=== PATIENT | male | born 1950 | race African-American/Black ===

== ENCOUNTER 2018-05-31 00:42 | Inpatient (IN) | payer MEDICARE, MEDICAID ==
[~2018-05-31] VITALS: Ht 172.7 cm; Wt 78.0 kg
[2018-05-31] VITALS (10 sets, daily range): BP systolic 102–174; BP diastolic 64–109
[~2018-05-31 00:42] MED LIST: LAMO150T PO; LAMO200T PO; OLME40TA12 PO
[2018-05-31] MEDS ORDERED: METHYLPREDNISOLONE SOD SUCC 125 MG/2 ML VIAL IV STA (00:47)
[2018-05-31] MEDS ORDERED: ALBUTEROL (0.083%) 2.5MG/3ML NEB HHN STA (00:47)
[2018-05-31] MEDS ORDERED: IPRATROPIUM BROMIDE (0.02%) 0.5MG/2.5ML NEB HHN STA (00:47)
[2018-05-31] MEDS ORDERED: MAGNESIUM 2 G PREMIX 50 ML IV ONE (01:00)
[2018-05-31] MEDS ORDERED: ALBUTEROL (0.5%) 2.5MG/0.5ML NEB HHN ONE (01:00)
[2018-05-31 01:17] LABS: BASOPHILS % 0.5 % (0.0-2.0); EOSINOPHILS % 0.6 % (0.0-5.0); HEMATOCRIT. 45.3 % (42.0-52.0); HEMOGLOBIN. 15.1 g/dL (14.0-18.0); LYMPHOCYTES % 18.6 % (20.0-50.0); MEAN CORPUSCULAR HEMOGLOBIN 33.3 pg (28.0-32.0); MEAN CORPUSCULAR VOLUME 100.2 fL (80.0-94.0); MEAN PLATELET VOLUME 7.4 fl (7.4-10.4); NEUTROPHILS % 73.3 % (40.0-76.0); PLATELET 346 x1000/uL (130-400); RED BLOOD CELL COUNT 4.52 mill/uL (4.7-6.1); RED CELL DISTRIBUTION WIDTH 14.9 % (11.6-14.6)
[2018-05-31 01:28] LABS: BG BASE EXCESS -0.6 mmol/L (-2.0-2.0); BG CARBOXYHEMOGLOBIN 1.2 % (0.5-1.5); BG FRACTION INSPIRED OXYGEN 60; BG HCO3 ACT 27.7 mmol/L (22.0-26.0); BG METHEMOGLOBIN 0.3 % (0.0-1.5); BG OXYHEMOGLOBIN 96.5 % (94.0-97.0); BG PCO2 60.6 mmHg (35.0-45.0); BG PH 7.278 (7.350-7.450); BG PO2 120.5 mmHg (75.0-100.0); BG SAMPLE SITE RIGHT RADIAL; BG TOTAL HEMOGLOBIN 15.3 g/dL (12.0-18.0); BG VENT MODE MASK - BIPAP; BG VENT RATE 20 set
[2018-05-31 01:44] LABS: CHLORIDE 101 mEq/L (98-107)
[2018-05-31] MEDS ORDERED: LORAZEPAM 2MG/ML CPJ IV ONE (01:45)
[2018-05-31 03:10] LABS: BG BASE EXCESS -3.4 mmol/L (-2.0-2.0); BG CARBOXYHEMOGLOBIN 0.8 % (0.5-1.5); BG DEOXYHEMOGLOBIN 5.2 % (0.0-5.0); BG FRACTION INSPIRED OXYGEN 60; BG HCO3 ACT 23.9 mmol/L (22.0-26.0); BG METHEMOGLOBIN 0.2 % (0.0-1.5); BG OXYGEN SATURATION 94.7 % (92.0-98.5); BG OXYHEMOGLOBIN 93.8 % (94.0-97.0); BG PCO2 51.6 mmHg (35.0-45.0); BG PH 7.284 (7.350-7.450); BG PO2 82.6 mmHg (75.0-100.0); BG SAMPLE SITE RIGHT RADIAL; BG VENT MODE MASK - BIPAP
[2018-05-31] MEDS ORDERED: KETOROLAC 15MG/ML VIAL IV SCH (04:30)
[2018-05-31] MEDS: AZITHROMYCIN 500 MG in DEXT 5% WATER 250 ML IV SCH ×2 (05:15→06:54)
[2018-05-31 08:47] LABS: BG BASE EXCESS -8.6 mmol/L (-2.0-2.0); BG CARBOXYHEMOGLOBIN 1.2 % (0.5-1.5); BG DEOXYHEMOGLOBIN 3.9 % (0.0-5.0); BG FRACTION INSPIRED OXYGEN 30; BG HCO3 ACT 16.3 mmol/L (22.0-26.0); BG OXYGEN SATURATION 96.1 % (92.0-98.5); BG OXYHEMOGLOBIN 94.9 % (94.0-97.0); BG PCO2 32.4 mmHg (35.0-45.0); BG PO2 87.9 mmHg (75.0-100.0); BG SAMPLE SITE LEFT BRACHIAL; BG TOTAL HEMOGLOBIN 14.6 g/dL (12.0-18.0); BG VENT MODE NASAL CANNULA
[2018-05-31] MEDS ORDERED: ACETAMINOPHEN 325MG TABLET PO PRN (10:15)
[2018-05-31] MEDS ORDERED: CLONIDINE 0.1MG TABLET PO PRN (10:15)
[2018-05-31] MEDS ORDERED: ONDANSETRON HCL 4MG/2ML INJ IV PRN (10:15)
[2018-05-31] MEDS ORDERED: ACETAMINOPHEN 650MG/20.3ML UDC GT PRN (10:15)
[2018-05-31] MEDS ORDERED: HYDROCODONE/ACETAMINOPHEN 5/325MG TABLET PO PRN (10:15)
[2018-05-31] MEDS ORDERED: MAGNESIUM/ALUMINUM HYDROXIDE/SIMETHICONE 30ML UDC PO PRN (10:15)
[2018-05-31] MEDS ORDERED: DEXTROSE 50% WATER 50ML SYRINGE IV PRN (10:15)
[2018-05-31] MEDS ORDERED: DOCUSATE SODIUM 100MG CAPSULE PO PRN (10:15)
[2018-05-31] MEDS ORDERED: DIPHENHYDRAMINE 50MG/ML VIAL IV PRN (10:15)
[2018-05-31] MEDS ORDERED: ENOXAPARIN 40MG/0.4ML SYR SUBCUT SCH (10:15)
[2018-05-31] MEDS ORDERED: ACETAMINOPHEN 650MG SUPP PR PRN (10:15)
[2018-05-31] MEDS ORDERED: GUAIFENESIN 200MG/10ML SUGAR FREE UDC PO PRN (10:15)
[2018-05-31] MEDS ORDERED: NA PHOS,M-B/NA PHOS,DI-BA ENEMA 118ML PR PRN (10:15)
[2018-05-31] MEDS ORDERED: METHYLPREDNISOLONE SOD SUCC 40 MG/ML VIAL IV SCH (10:30)
[2018-05-31] MEDS: BLOOD SUGAR DIAGNOSTIC STRIP TEST SCH ×3 (11:58→21:00)
[2018-05-31] MEDS: ENOXAPARIN 30MG/0.3ML SYR SUBCUT SCH ×2 (11:58→22:02)
[2018-05-31] MEDS ORDERED: IPRATROPIUM/ALBUTEROL 0.5-3(2.5)MG/3ML NEB INH SCH (12:00)
[2018-05-31] MEDS ORDERED: HYDR-4005 MT (12:12)
[2018-05-31] MEDS ORDERED: INSULIN LISPRO 100 UNITS/ML SUBCUT NR (12:45)
[2018-05-31] MEDS: INSULIN LISPRO 100 UNITS/ML SUBCUT SCH ×3 (12:51→22:13)
[2018-05-31] MEDS ORDERED: LAM2 MT (15:05)
[2018-05-31] MEDS ORDERED: BUDESONIDE 0.5MG/2ML NEB HHN SCH (16:00)
[2018-05-31 16:48] LABS: BG BASE EXCESS -1.5 mmol/L (-2.0-2.0); BG BILEVEL POS AIRWAY PRESSURE 15/5; BG CARBOXYHEMOGLOBIN 0.6 % (0.5-1.5); BG FRACTION INSPIRED OXYGEN 40; BG HCO3 ACT 24.3 mmol/L (22.0-26.0); BG METHEMOGLOBIN 0.3 % (0.0-1.5); BG OXYHEMOGLOBIN 98.1 % (94.0-97.0); BG PCO2 44.7 mmHg (35.0-45.0); BG PH 7.353 (7.350-7.450); BG PO2 174.8 mmHg (75.0-100.0); BG SAMPLE SITE RIGHT BRACHIAL; BG TOTAL HEMOGLOBIN 14.9 g/dL (12.0-18.0); BG VENT MODE MASK - BIPAP
[2018-05-31] MEDS ORDERED: LAMOTRIGINE MT SCH (17:00)
[2018-05-31] MEDS: LAMOTRIGINE 100MG TABLET PO SCH (17:00)
[2018-05-31] MEDS: IPRATROPIUM/ALBUTEROL 0.5-3(2.5)MG/3ML NEB INH SCH ×3 (17:15→23:49)
[2018-05-31] MEDS ORDERED: TERBUTALINE SULFATE 1MG/ML VIAL SUBCUT NR (17:45)
[2018-05-31] MEDS ORDERED: METHYLPREDNISOLONE SOD SUCC 40 MG/ML VIAL IV NR (17:45)
[2018-05-31] MEDS: METHYLPREDNISOLONE SOD SUCC 40 MG/ML VIAL IV SCH ×2 (18:06→23:21)
[2018-05-31] MEDS: LORAZEPAM 2MG/ML CPJ IV PRN ×2 (18:07→21:31)
[2018-05-31] MEDS ORDERED: ETOMIDATE 2MG/ML 10ML VIAL IV ONE (19:30)
[2018-05-31] MEDS ORDERED: SUCCINYLCHOLINE CHLORIDE 200MG/10ML VIAL IV ONE (19:30)
[2018-05-31 20:10] LABS: *COCAINE SCREEN URINE PRESUMTIVE POSITIVE (NEGATIVE); METHADONE URINE SCREEN NEGATIVE (NEGATIVE)
[2018-05-31 20:11] LABS: *AMPHETAMINES SCREEN URINE NEGATIVE (NEGATIVE); *BARBITURATES SCREEN URINE NEGATIVE (NEGATIVE); *BENZODIAZEPINES SCREEN URINE NEGATIVE (NEGATIVE); CANNABINOID URINE SCREEN NEGATIVE (NEGATIVE); OPIATES URINE SCREEN NEGATIVE (NEGATIVE); PHENCYCLIDINE URINE SCREEN NEGATIVE (NEGATIVE)
[2018-05-31] MEDS: QUETIAPINE FUMARATE 25MG TABLET PO SCH (21:00)
[2018-05-31] MEDS: PROPOFOL 10MG/ML 100ML 100 ML IV PRN (21:17)
[2018-05-31] MEDS: FENTANYL CITRATE/PF 500 MCG in SODIUM CHLORIDE 0.9% 40 ML IV PRN (21:17)
[2018-05-31] MEDS: IPRATROPIUM/ALBUTEROL 0.5-3(2.5)MG/3ML NEB INH PRN (22:31)
[2018-05-31 22:39] LABS: BG BASE EXCESS -3.5 mmol/L (-2.0-2.0); BG CARBOXYHEMOGLOBIN 0.5 % (0.5-1.5); BG DEOXYHEMOGLOBIN 0.6 % (0.0-5.0); BG FRACTION INSPIRED OXYGEN 80; BG HCO3 ACT 26.6 mmol/L (22.0-26.0); BG METHEMOGLOBIN 0.3 % (0.0-1.5); BG OXYGEN SATURATION 99.4 % (92.0-98.5); BG OXYHEMOGLOBIN 98.6 % (94.0-97.0); BG PCO2 72.6 mmHg (35.0-45.0); BG PH 7.181 (7.350-7.450); BG PO2 351.3 mmHg (75.0-100.0); BG SAMPLE SITE RIGHT RADIAL; BG TIDAL VOLUME(mL) 500 mL; BG TOTAL HEMOGLOBIN 14.4 g/dL (12.0-18.0); BG VENT MODE VENT - A/C; BG VENT RATE 16 set
[2018-06-01] VITALS (58 sets, daily range): BP systolic 83–132; BP diastolic 44–92
[2018-06-01] MEDS: FENTANYL CITRATE/PF 500 MCG in SODIUM CHLORIDE 0.9% 40 ML IV PRN (00:12)
[2018-06-01] MEDS: MIDAZOLAM HCL 100 MG in DEXT 5% WATER 80 ML IV PRN ×2 (00:13→13:32)
[2018-06-01] MEDS: PROPOFOL 10MG/ML 100ML 100 ML IV PRN (00:14)
[2018-06-01] MEDS ORDERED: FENTANYL CITRATE/PF 1,000 MCG in SODIUM CHLORIDE 0.9% 80 ML IV PRN (02:00)
[2018-06-01] MEDS: IPRATROPIUM/ALBUTEROL 0.5-3(2.5)MG/3ML NEB INH SCH ×6 (04:05→23:58)
[2018-06-01 05:00] LABS: HEMATOCRIT. 40.9 % (42.0-52.0); HEMOGLOBIN. 13.6 g/dL (14.0-18.0); MEAN CORPUSCULAR HEMOGLOBIN 33.5 pg (28.0-32.0); MEAN CORPUSCULAR VOLUME 100.7 fL (80.0-94.0); MEAN PLATELET VOLUME 7.6 fl (7.4-10.4); PLATELET 334 x1000/uL (130-400); RED BLOOD CELL COUNT 4.06 mill/uL (4.7-6.1); RED CELL DISTRIBUTION WIDTH 14.7 % (11.6-14.6)
[2018-06-01 05:03] LABS: CHLORIDE 98 mEq/L (98-107)
[2018-06-01 05:11] LABS: HDL CHOLESTEROL 87 mg/dL (40-59); LDL CHOLESTEROL 164 mg/dL (5-100)
[2018-06-01] MEDS ORDERED: SODIUM CHLORIDE 0.9% 500 ML IV ONE ×2 (05:45→07:00)
[2018-06-01] MEDS ORDERED: DEXTROSE 50% WATER 50ML SYRINGE IV SCH (05:45)
[2018-06-01] MEDS ORDERED: INSULIN REGULAR (HUMULIN R) 300UNITS/3ML IV SCH (05:45)
[2018-06-01] MEDS ORDERED: NOREPINEPHRINE 8 MG in DEXT 5% WATER 242 ML IV PRN (06:00)
[2018-06-01] MEDS ORDERED: BLOOD SUGAR DIAGNOSTIC STRIP TEST SCH (06:00)
[2018-06-01] MEDS ORDERED: INSULIN LISPRO 100 UNITS/ML SUBCUT SCH (06:00)
[2018-06-01] MEDS ORDERED: CALCIUM GLUCONATE 100MG/ML 10ML VIAL IV SCH (06:00)
[2018-06-01] MEDS: METHYLPREDNISOLONE SOD SUCC 40 MG/ML VIAL IV SCH ×4 (06:23→23:19)
[2018-06-01] MEDS ORDERED: CALCIUM GLUCONATE 1000 MG in DEXTROSE 5% WATER 100 ML IV NR (06:30)
[2018-06-01] MEDS: DEXT 5%/0.45% NACL 1000ML 1,000 ML IV SCH ×3 (06:49→23:20)
[2018-06-01] MEDS ORDERED: SODIUM POLYSTYRENE SULFONATE 15 G/60 ML BOT NG NR (07:15)
[2018-06-01] MEDS ORDERED: DEXTROSE 50% WATER 50ML SYRINGE IV PRN ×2 (08:30)
[2018-06-01 08:49] LABS: BG BASE EXCESS -5.1 mmol/L (-2.0-2.0); BG CARBOXYHEMOGLOBIN 0.2 % (0.5-1.5); BG DEOXYHEMOGLOBIN 0.9 % (0.0-5.0); BG FRACTION INSPIRED OXYGEN 60; BG HCO3 ACT 22.4 mmol/L (22.0-26.0); BG METHEMOGLOBIN 0.3 % (0.0-1.5); BG OXYGEN SATURATION 99.1 % (92.0-98.5); BG OXYHEMOGLOBIN 98.6 % (94.0-97.0); BG PCO2 51.6 mmHg (35.0-45.0); BG PH 7.256 (7.350-7.450); BG PO2 199.4 mmHg (75.0-100.0); BG SAMPLE SITE RIGHT RADIAL; BG TIDAL VOLUME(mL) 500 mL; BG TOTAL HEMOGLOBIN 13.6 g/dL (12.0-18.0); BG VENT MODE VENT - A/C; BG VENT RATE 20 set
[2018-06-01] MEDS: ENOXAPARIN 30MG/0.3ML SYR SUBCUT SCH (08:56)
[2018-06-01] MEDS: BLOOD SUGAR DIAGNOSTIC STRIP TEST SCH ×15 (09:00→23:20)
[2018-06-01] MEDS ORDERED: INSULIN REGULAR (DRIP) 100 UNITS in SODIUM CHLORIDE 0.9% 99 ML IV PRN (09:00)
[2018-06-01] MEDS ORDERED: DIGOXIN 500MCG/2ML AMP IV NR (09:15)
[2018-06-01] MEDS: AZITHROMYCIN 500 MG in DEXT 5% WATER 250 ML IV SCH (10:15)
[2018-06-01] MEDS: FENTANYL CITRATE/PF 1,000 MCG in SODIUM CHLORIDE 0.9% 80 ML IV PRN (10:24)
[2018-06-01] MEDS: LAMOTRIGINE 100MG TABLET PO SCH ×2 (10:53→17:29)
[2018-06-01] MEDS ORDERED: AMINOPHYLLINE 1,000 MG in SODIUM CHLORIDE 0.9% 210 ML IV SCH (11:00)
[2018-06-01] MEDS ORDERED: PANTOPRAZOLE SODIUM 40 MG/VIAL IV NR (11:00)
[2018-06-01] MEDS: CEFTRIAXONE 2 G in DEXTROSE 5% WATER 50 ML IV SCH (11:16)
[2018-06-01] MEDS ORDERED: LIDOCAINE HCL 1% 10 MG/ML 10ML VIAL ONE (11:40)
[2018-06-01 14:28] LABS: PLATELET ESTIMATE NORMAL
[2018-06-01] MEDS: IPRATROPIUM/ALBUTEROL 0.5-3(2.5)MG/3ML NEB INH PRN (14:30)
[2018-06-01 15:29] LABS: BG BASE EXCESS -2.7 mmol/L (-2.0-2.0); BG CARBOXYHEMOGLOBIN 0.2 % (0.5-1.5); BG DEOXYHEMOGLOBIN 2.5 % (0.0-5.0); BG FRACTION INSPIRED OXYGEN 40; BG HCO3 ACT 22.1 mmol/L (22.0-26.0); BG METHEMOGLOBIN 0.3 % (0.0-1.5); BG OXYGEN SATURATION 97.5 % (92.0-98.5); BG PCO2 38.5 mmHg (35.0-45.0); BG PH 7.376 (7.350-7.450); BG PO2 97.4 mmHg (75.0-100.0); BG SAMPLE SITE RIGHT RADIAL; BG TOTAL HEMOGLOBIN 13.5 g/dL (12.0-18.0); BG VENT MODE VENT - PCV; BG VENT RATE 16 set
[2018-06-01] MEDS: QUETIAPINE FUMARATE 25MG TABLET PO SCH (21:00)
[2018-06-02] VITALS (74 sets, daily range): BP systolic 84–157; BP diastolic 48–109
[2018-06-02] MEDS ORDERED: DEXTROSE 50% WATER 50ML SYRINGE IV PRN ×2 (00:15→19:45)
[2018-06-02] MEDS ORDERED: BLOOD SUGAR DIAGNOSTIC STRIP TEST SCH (00:15)
[2018-06-02] MEDS ORDERED: FUROSEMIDE 40MG/4ML VIAL IVP SCH (00:37)
[2018-06-02] MEDS: FENTANYL CITRATE/PF 1,000 MCG in SODIUM CHLORIDE 0.9% 80 ML IV PRN ×3 (02:56→22:29)
[2018-06-02] MEDS: MIDAZOLAM HCL 100 MG in DEXT 5% WATER 80 ML IV PRN ×3 (02:56→22:28)
[2018-06-02] MEDS: IPRATROPIUM/ALBUTEROL 0.5-3(2.5)MG/3ML NEB INH SCH ×7 (04:15→23:55)
[2018-06-02] MEDS: METHYLPREDNISOLONE SOD SUCC 40 MG/ML VIAL IV SCH ×4 (05:35→22:25)
[2018-06-02] MEDS: DEXT 5%/0.45% NACL 1000ML 1,000 ML IV SCH ×2 (05:35→14:47)
[2018-06-02] MEDS: BLOOD SUGAR DIAGNOSTIC STRIP TEST SCH ×4 (05:39→22:00)
[2018-06-02] MEDS: INSULIN LISPRO 100 UNITS/ML SUBCUT SCH ×4 (06:10→22:00)
[2018-06-02] MEDS ORDERED: ENOXAPARIN 40MG/0.4ML SYR SUBCUT SCH (09:00)
[2018-06-02] MEDS: LAMOTRIGINE 100MG TABLET PO SCH ×2 (09:38→17:01)
[2018-06-02] MEDS: PANTOPRAZOLE SODIUM 40 MG/VIAL IV SCH (09:38)
[2018-06-02] MEDS: AZITHROMYCIN 500 MG in DEXT 5% WATER 250 ML IV SCH (09:39)
[2018-06-02 10:31] LABS: HEMOGLOBIN. 12.7 g/dL (14.0-18.0); MEAN CORPUSCULAR HEMOGLOBIN 33.6 pg (28.0-32.0); MEAN CORPUSCULAR VOLUME 100.2 fL (80.0-94.0); MEAN PLATELET VOLUME 7.5 fl (7.4-10.4); PLATELET 307 x1000/uL (130-400); RED BLOOD CELL COUNT 3.79 mill/uL (4.7-6.1); RED CELL DISTRIBUTION WIDTH 14.5 % (11.6-14.6)
[2018-06-02 10:35] LABS: CHLORIDE 96 mEq/L (98-107)
[2018-06-02 10:51] LABS: BG BASE EXCESS -1.3 mmol/L (-2.0-2.0); BG CARBOXYHEMOGLOBIN 0.6 % (0.5-1.5); BG DEOXYHEMOGLOBIN 3.8 % (0.0-5.0); BG FRACTION INSPIRED OXYGEN 40; BG HCO3 ACT 25.1 mmol/L (22.0-26.0); BG METHEMOGLOBIN 0.1 % (0.0-1.5); BG OXYGEN SATURATION 96.2 % (92.0-98.5); BG OXYHEMOGLOBIN 95.5 % (94.0-97.0); BG PCO2 48.5 mmHg (35.0-45.0); BG PH 7.331 (7.350-7.450); BG PO2 87.5 mmHg (75.0-100.0); BG SAMPLE SITE RIGHT RADIAL; BG TOTAL HEMOGLOBIN 13.4 g/dL (12.0-18.0); BG VENT MODE VENT - PCV; BG VENT RATE 16 set
[2018-06-02] MEDS: CEFTRIAXONE 2 G in DEXTROSE 5% WATER 50 ML IV SCH (11:34)
[2018-06-02 11:59] LABS: PLATELET ESTIMATE NORMAL
[2018-06-02] MEDS ORDERED: SODIUM CHLORIDE 0.45% 1,000 ML IV SCH (17:15)
[2018-06-02 17:29] LABS: CLARITY URINE CLOUDY (CLEAR); COLOR URINE YELLOW (YELLOW); KETONES URINE NEGATIVE (NEGATIVE); LEUKOCYTE ESTERASE URINE TRACE (NEGATIVE); NITRITE URINE NEGATIVE (NEGATIVE); OCCULT BLOOD URINE 3+ (NEGATIVE); PROTEIN URINE 1+ (NEGATIVE); SPECIFIC GRAVITY URINE 1.013 (1.005-1.030); UROBILINOGEN URINE 0.2 E.U./dL (0.2-1.0)
[2018-06-02] MEDS: SODIUM CHLORIDE 0.9% 1,000 ML IV SCH (19:07)
[2018-06-02 19:18] LABS: CHLORIDE 94 mEq/L (98-107)
[2018-06-02 19:25] LABS: PHOSPHORUS 3.9 mg/dL (2.5-4.9)
[2018-06-02 19:26] LABS: LDL CHOLESTEROL 135 mg/dL (5-100)
[2018-06-02 19:28] LABS: HDL CHOLESTEROL 94 mg/dL (40-59); T4 FREE 1.06 ng/dL (0.76-1.46)
[2018-06-02] MEDS: QUETIAPINE FUMARATE 25MG TABLET PO SCH (22:25)
[2018-06-03] VITALS (79 sets, daily range): BP systolic 90–154; BP diastolic 46–97
[2018-06-03] MEDS: IPRATROPIUM/ALBUTEROL 0.5-3(2.5)MG/3ML NEB INH SCH ×5 (03:56→21:07)
[2018-06-03] MEDS: BLOOD SUGAR DIAGNOSTIC STRIP TEST SCH ×6 (04:00→16:00)
[2018-06-03] MEDS: METHYLPREDNISOLONE SOD SUCC 40 MG/ML VIAL IV SCH ×3 (05:56→17:27)
[2018-06-03 06:23] LABS: CHLORIDE 97 mEq/L (98-107)
[2018-06-03 06:30] LABS: HEMATOCRIT. 34.4 % (42.0-52.0); HEMOGLOBIN. 11.5 g/dL (14.0-18.0); MEAN CORPUSCULAR HEMOGLOBIN 33.4 pg (28.0-32.0); MEAN CORPUSCULAR VOLUME 99.5 fL (80.0-94.0); MEAN PLATELET VOLUME 7.7 fl (7.4-10.4); PLATELET 288 x1000/uL (130-400); RED BLOOD CELL COUNT 3.45 mill/uL (4.7-6.1); RED CELL DISTRIBUTION WIDTH 14.5 % (11.6-14.6)
[2018-06-03] MEDS: FENTANYL CITRATE/PF 1,000 MCG in SODIUM CHLORIDE 0.9% 80 ML IV PRN ×2 (06:30→18:58)
[2018-06-03] MEDS: MIDAZOLAM HCL 100 MG in DEXT 5% WATER 80 ML IV PRN (06:31)
[2018-06-03 06:41] LABS: PHOSPHORUS 3.8 mg/dL (2.5-4.9)
[2018-06-03] MEDS: INSULIN LISPRO 100 UNITS/ML SUBCUT SCH ×6 (08:52→20:51)
[2018-06-03] MEDS: PANTOPRAZOLE SODIUM 40 MG/VIAL IV SCH (09:01)
[2018-06-03] MEDS: LAMOTRIGINE 100MG TABLET PO SCH ×2 (09:02→17:17)
[2018-06-03] MEDS: ENOXAPARIN 30MG/0.3ML SYR SUBCUT SCH (09:04)
[2018-06-03] MEDS: SODIUM CHLORIDE 0.9% 1,000 ML IV SCH ×2 (09:04→20:52)
[2018-06-03] MEDS: AZITHROMYCIN 500 MG in DEXT 5% WATER 250 ML IV SCH (09:32)
[2018-06-03] MEDS: CEFTRIAXONE 2 G in DEXTROSE 5% WATER 50 ML IV SCH (11:07)
[2018-06-03 13:08] LABS: BG BASE EXCESS 3.3 mmol/L (-2.0-2.0); BG CARBOXYHEMOGLOBIN 0.4 % (0.5-1.5); BG DEOXYHEMOGLOBIN 4.9 % (0.0-5.0); BG HCO3 ACT 29.8 mmol/L (22.0-26.0); BG METHEMOGLOBIN 0.2 % (0.0-1.5); BG OXYGEN SATURATION 95.1 % (92.0-98.5); BG OXYHEMOGLOBIN 94.5 % (94.0-97.0); BG PCO2 53.6 mmHg (35.0-45.0); BG PH 7.363 (7.350-7.450); BG PO2 81.2 mmHg (75.0-100.0); BG SAMPLE SITE RIGHT RADIAL; BG TIDAL VOLUME(mL) 500 mL; BG TOTAL HEMOGLOBIN 13.1 g/dL (12.0-18.0); BG VENT MODE VENT - A/C; BG VENT RATE 16 set
[2018-06-03 16:14] LABS: PLATELET ESTIMATE NORMAL
[2018-06-03] MEDS: QUETIAPINE FUMARATE 25MG TABLET PO SCH (20:52)
[2018-06-03] MEDS: IPRATROPIUM/ALBUTEROL 0.5-3(2.5)MG/3ML NEB INH PRN (21:07)
[2018-06-04] VITALS (85 sets, daily range): BP systolic 99–159; BP diastolic 58–107
[2018-06-04] MEDS: METHYLPREDNISOLONE SOD SUCC 40 MG/ML VIAL IV SCH ×3 (00:38→16:30)
[2018-06-04] MEDS: MIDAZOLAM HCL 100 MG in DEXT 5% WATER 80 ML IV PRN ×2 (00:40→10:36)
[2018-06-04] MEDS: FENTANYL CITRATE/PF 1,000 MCG in SODIUM CHLORIDE 0.9% 80 ML IV PRN ×3 (00:41→21:44)
[2018-06-04] MEDS: BLOOD SUGAR DIAGNOSTIC STRIP TEST SCH ×6 (00:42→20:00)
[2018-06-04] MEDS: INSULIN LISPRO 100 UNITS/ML SUBCUT SCH ×6 (00:49→21:42)
[2018-06-04] MEDS: IPRATROPIUM/ALBUTEROL 0.5-3(2.5)MG/3ML NEB INH SCH ×6 (00:57→21:06)
[2018-06-04 06:57] LABS: HEMATOCRIT. 35.2 % (42.0-52.0); HEMOGLOBIN. 11.9 g/dL (14.0-18.0); MEAN CORPUSCULAR VOLUME 100.7 fL (80.0-94.0); MEAN PLATELET VOLUME 7.8 fl (7.4-10.4); PLATELET 309 x1000/uL (130-400); RED CELL DISTRIBUTION WIDTH 14.7 % (11.6-14.6)
[2018-06-04 07:15] LABS: CHLORIDE 100 mEq/L (98-107)
[2018-06-04 07:23] LABS: PHOSPHORUS 2.8 mg/dL (2.5-4.9)
[2018-06-04] MEDS: ENOXAPARIN 30MG/0.3ML SYR SUBCUT SCH (09:22)
[2018-06-04] MEDS: LAMOTRIGINE 100MG TABLET PO SCH ×2 (09:22→16:29)
[2018-06-04] MEDS: PANTOPRAZOLE SODIUM 40 MG/VIAL IV SCH (09:22)
[2018-06-04] MEDS: AZITHROMYCIN 500 MG in DEXT 5% WATER 250 ML IV SCH (09:25)
[2018-06-04 10:34] LABS: PLATELET ESTIMATE NORMAL
[2018-06-04] MEDS ORDERED: METHYLPREDNISOLONE SOD SUCC 125 MG/2 ML VIAL IV NR (11:00)
[2018-06-04] MEDS: CEFTRIAXONE 2 G in DEXTROSE 5% WATER 50 ML IV SCH (11:23)
[2018-06-04] MEDS: SODIUM CHLORIDE 0.9% 1,000 ML IV SCH (11:24)
[2018-06-04 11:55] LABS: BG BASE EXCESS 2.4 mmol/L (-2.0-2.0); BG CARBOXYHEMOGLOBIN 0.4 % (0.5-1.5); BG DEOXYHEMOGLOBIN 4.1 % (0.0-5.0); BG FRACTION INSPIRED OXYGEN 40; BG HCO3 ACT 28.7 mmol/L (22.0-26.0); BG METHEMOGLOBIN 0.1 % (0.0-1.5); BG OXYGEN SATURATION 95.9 % (92.0-98.5); BG OXYHEMOGLOBIN 95.4 % (94.0-97.0); BG PCO2 51.8 mmHg (35.0-45.0); BG PH 7.361 (7.350-7.450); BG PO2 86.4 mmHg (75.0-100.0); BG SAMPLE SITE RIGHT RADIAL; BG TIDAL VOLUME(mL) 500 mL; BG TOTAL HEMOGLOBIN 12.2 g/dL (12.0-18.0); BG VENT MODE VENT - A/C; BG VENT RATE 16 set
[2018-06-04] MEDS: QUETIAPINE FUMARATE 25MG TABLET PO SCH (21:41)
[2018-06-05] VITALS (82 sets, daily range): BP systolic 105–174; BP diastolic 65–128
[2018-06-05] MEDS: SODIUM CHLORIDE 0.9% 1,000 ML IV SCH (00:20)
[2018-06-05] MEDS: IPRATROPIUM/ALBUTEROL 0.5-3(2.5)MG/3ML NEB INH SCH ×8 (00:35→21:34)
[2018-06-05] MEDS: METHYLPREDNISOLONE SOD SUCC 40 MG/ML VIAL IV SCH ×3 (02:02→17:26)
[2018-06-05] MEDS: INSULIN LISPRO 100 UNITS/ML SUBCUT SCH ×6 (02:03→20:40)
[2018-06-05] MEDS: MIDAZOLAM HCL 100 MG in DEXT 5% WATER 80 ML IV PRN ×2 (02:04→19:58)
[2018-06-05] MEDS: BLOOD SUGAR DIAGNOSTIC STRIP TEST SCH ×6 (04:00→20:41)
[2018-06-05 06:31] LABS: BASOPHILS % 0.2 % (0.0-2.0); HEMATOCRIT. 35.9 % (42.0-52.0); HEMOGLOBIN. 11.8 g/dL (14.0-18.0); LYMPHOCYTES % 7.3 % (20.0-50.0); MEAN CORPUSCULAR HEMOGLOBIN 33.4 pg (28.0-32.0); MEAN CORPUSCULAR VOLUME 101.2 fL (80.0-94.0); MEAN PLATELET VOLUME 7.6 fl (7.4-10.4); MONOCYTES % 11.3 % (2.0-8.0); NEUTROPHILS % 81.2 % (40.0-76.0); PLATELET 304 x1000/uL (130-400); RED BLOOD CELL COUNT 3.54 mill/uL (4.7-6.1); RED CELL DISTRIBUTION WIDTH 14.5 % (11.6-14.6)
[2018-06-05 06:45] LABS: CHLORIDE 103 mEq/L (98-107)
[2018-06-05 06:55] LABS: PHOSPHORUS 1.9 mg/dL (2.5-4.9)
[2018-06-05] MEDS: FENTANYL CITRATE/PF 1,000 MCG in SODIUM CHLORIDE 0.9% 80 ML IV PRN (08:13)
[2018-06-05] MEDS ORDERED: SODIUM POLYSTYRENE SULFONATE 15 G/60 ML BOT PO NR (10:00)
[2018-06-05] MEDS: PANTOPRAZOLE SODIUM 40 MG/VIAL IV SCH (10:31)
[2018-06-05] MEDS: LAMOTRIGINE 100MG TABLET PO SCH ×2 (10:31→17:26)
[2018-06-05] MEDS: AZITHROMYCIN 500 MG in DEXT 5% WATER 250 ML IV SCH (10:31)
[2018-06-05] MEDS: CEFTRIAXONE 2 G in DEXTROSE 5% WATER 50 ML IV SCH (10:32)
[2018-06-05] MEDS: ENOXAPARIN 40MG/0.4ML SYR SUBCUT SCH (10:45)
[2018-06-05] MEDS ORDERED: SODIUM PHOS,M-BASIC-D-BASIC 20 MM in DEXT 5% WATER 243.3333 ML IV SCH (15:00)
[2018-06-05] MEDS: QUETIAPINE FUMARATE 25MG TABLET PO SCH (20:41)
[2018-06-06] VITALS (84 sets, daily range): BP systolic 100–173; BP diastolic 51–99
[2018-06-06] MEDS: IPRATROPIUM/ALBUTEROL 0.5-3(2.5)MG/3ML NEB INH SCH ×6 (01:02→20:32)
[2018-06-06] MEDS: BLOOD SUGAR DIAGNOSTIC STRIP TEST SCH ×6 (01:18→20:46)
[2018-06-06] MEDS: METHYLPREDNISOLONE SOD SUCC 40 MG/ML VIAL IV SCH ×3 (01:29→17:20)
[2018-06-06] MEDS: INSULIN LISPRO 100 UNITS/ML SUBCUT SCH ×6 (01:30→20:50)
[2018-06-06] MEDS: MIDAZOLAM HCL 100 MG in DEXT 5% WATER 80 ML IV PRN ×2 (04:29→06:17)
[2018-06-06 05:53] LABS: BASOPHILS % 0.1 % (0.0-2.0); EOSINOPHILS % 0.1 % (0.0-5.0); HEMATOCRIT. 33.5 % (42.0-52.0); HEMOGLOBIN. 11.2 g/dL (14.0-18.0); LYMPHOCYTES % 10.2 % (20.0-50.0); MEAN CORPUSCULAR HEMOGLOBIN 33.4 pg (28.0-32.0); MEAN CORPUSCULAR VOLUME 100.2 fL (80.0-94.0); MEAN PLATELET VOLUME 7.6 fl (7.4-10.4); MONOCYTES % 11.7 % (2.0-8.0); NEUTROPHILS % 77.9 % (40.0-76.0); PLATELET 336 x1000/uL (130-400); RED BLOOD CELL COUNT 3.34 mill/uL (4.7-6.1); RED CELL DISTRIBUTION WIDTH 14.3 % (11.6-14.6)
[2018-06-06 06:35] LABS: CHLORIDE 98 mEq/L (98-107)
[2018-06-06 06:44] LABS: PHOSPHORUS 3.1 mg/dL (2.5-4.9)
[2018-06-06] MEDS: LAMOTRIGINE 100MG TABLET PO SCH ×2 (08:53→17:20)
[2018-06-06] MEDS: ENOXAPARIN 40MG/0.4ML SYR SUBCUT SCH (08:53)
[2018-06-06] MEDS: PANTOPRAZOLE SODIUM 40 MG/VIAL IV SCH (08:54)
[2018-06-06] MEDS ORDERED: SODIUM POLYSTYRENE SULFONATE 15 G/60 ML BOT NG NR (09:00)
[2018-06-06 09:10] LABS: BG BASE EXCESS 9.8 mmol/L (-2.0-2.0); BG DEOXYHEMOGLOBIN 1.6 % (0.0-5.0); BG FRACTION INSPIRED OXYGEN 60; BG HCO3 ACT 35.9 mmol/L (22.0-26.0); BG METHEMOGLOBIN 0.3 % (0.0-1.5); BG OXYGEN SATURATION 98.4 % (92.0-98.5); BG OXYHEMOGLOBIN 98.1 % (94.0-97.0); BG PCO2 55.8 mmHg (35.0-45.0); BG PH 7.426 (7.350-7.450); BG PO2 136.1 mmHg (75.0-100.0); BG SAMPLE SITE RIGHT RADIAL; BG TIDAL VOLUME(mL) 500 mL; BG VENT MODE VENT - A/C; BG VENT RATE 16 set
[2018-06-06] MEDS: AZITHROMYCIN 500 MG in DEXT 5% WATER 250 ML IV SCH (09:23)
[2018-06-06] MEDS: CEFTRIAXONE 2 G in DEXTROSE 5% WATER 50 ML IV SCH (10:36)
[2018-06-06] MEDS ORDERED: FENTANYL CITRATE/PF 500 MCG in SODIUM CHLORIDE 0.9% 40 ML IV PRN (18:45)
[2018-06-06] MEDS: FENTANYL CITRATE/PF 1,000 MCG in SODIUM CHLORIDE 0.9% 80 ML IV PRN (18:55)
[2018-06-06] MEDS: QUETIAPINE FUMARATE 25MG TABLET PO SCH (20:46)
[2018-06-07] VITALS (86 sets, daily range): BP systolic 105–169; BP diastolic 50–96
[2018-06-07] MEDS: IPRATROPIUM/ALBUTEROL 0.5-3(2.5)MG/3ML NEB INH SCH ×6 (00:46→21:13)
[2018-06-07] MEDS: METHYLPREDNISOLONE SOD SUCC 40 MG/ML VIAL IV SCH ×3 (01:25→16:55)
[2018-06-07] MEDS: INSULIN LISPRO 100 UNITS/ML SUBCUT SCH ×6 (01:27→21:14)
[2018-06-07 05:25] LABS: HEMATOCRIT. 35.3 % (42.0-52.0); HEMOGLOBIN. 11.6 g/dL (14.0-18.0); MEAN CORPUSCULAR HEMOGLOBIN 32.8 pg (28.0-32.0); MEAN CORPUSCULAR VOLUME 99.9 fL (80.0-94.0); MEAN PLATELET VOLUME 7.6 fl (7.4-10.4); PLATELET 356 x1000/uL (130-400); RED BLOOD CELL COUNT 3.53 mill/uL (4.7-6.1)
[2018-06-07] MEDS: BLOOD SUGAR DIAGNOSTIC STRIP TEST SCH ×6 (05:45→20:00)
[2018-06-07 05:56] LABS: CHLORIDE 95 mEq/L (98-107)
[2018-06-07] MEDS: PANTOPRAZOLE SODIUM 40 MG/VIAL IV SCH (08:50)
[2018-06-07] MEDS: LAMOTRIGINE 100MG TABLET PO SCH ×2 (08:51→16:57)
[2018-06-07] MEDS: ENOXAPARIN 40MG/0.4ML SYR SUBCUT SCH (08:51)
[2018-06-07 09:03] LABS: BG BASE EXCESS 13.3 mmol/L (-2.0-2.0); BG CARBOXYHEMOGLOBIN 0.7 % (0.5-1.5); BG DEOXYHEMOGLOBIN 3.6 % (0.0-5.0); BG FRACTION INSPIRED OXYGEN 40; BG METHEMOGLOBIN 0.3 % (0.0-1.5); BG OXYGEN SATURATION 96.4 % (92.0-98.5); BG OXYHEMOGLOBIN 95.4 % (94.0-97.0); BG PCO2 54.6 mmHg (35.0-45.0); BG PH 7.472 (7.350-7.450); BG PO2 83.3 mmHg (75.0-100.0); BG PRESSURE SUPPORT 12; BG SAMPLE SITE RIGHT RADIAL; BG TIDAL VOLUME(mL) 500 mL; BG TOTAL HEMOGLOBIN 12.5 g/dL (12.0-18.0); BG VENT MODE VENT - SIMV; BG VENT RATE 8 set
[2018-06-07] MEDS: AZITHROMYCIN 500 MG in DEXT 5% WATER 250 ML IV SCH (09:10)
[2018-06-07 09:24] LABS: PLATELET ESTIMATE NORMAL
[2018-06-07] MEDS: CEFTRIAXONE 2 G in DEXTROSE 5% WATER 50 ML IV SCH (11:28)
[2018-06-07] MEDS: MIDAZOLAM HCL 100 MG in DEXT 5% WATER 80 ML IV PRN (12:06)
[2018-06-07] MEDS: FENTANYL CITRATE/PF 1,000 MCG in SODIUM CHLORIDE 0.9% 80 ML IV PRN (21:16)
[2018-06-07] MEDS: QUETIAPINE FUMARATE 25MG TABLET PO SCH (21:17)
[2018-06-08] VITALS (90 sets, daily range): BP systolic 90–149; BP diastolic 47–95
[2018-06-08] MEDS: BLOOD SUGAR DIAGNOSTIC STRIP TEST SCH ×7 (00:22→23:40)
[2018-06-08] MEDS: INSULIN LISPRO 100 UNITS/ML SUBCUT SCH ×7 (00:24→23:39)
[2018-06-08] MEDS: IPRATROPIUM/ALBUTEROL 0.5-3(2.5)MG/3ML NEB INH SCH ×6 (00:48→20:32)
[2018-06-08] MEDS: METHYLPREDNISOLONE SOD SUCC 40 MG/ML VIAL IV SCH ×3 (01:56→17:18)
[2018-06-08] MEDS: MIDAZOLAM HCL 100 MG in DEXT 5% WATER 80 ML IV PRN (04:32)
[2018-06-08 05:21] LABS: BASOPHILS % 0.3 % (0.0-2.0); EOSINOPHILS % 0.1 % (0.0-5.0); HEMATOCRIT. 35.1 % (42.0-52.0); HEMOGLOBIN. 11.7 g/dL (14.0-18.0); MEAN CORPUSCULAR HEMOGLOBIN 33.3 pg (28.0-32.0); MEAN CORPUSCULAR VOLUME 99.5 fL (80.0-94.0); MEAN PLATELET VOLUME 7.4 fl (7.4-10.4); MONOCYTES % 10.1 % (2.0-8.0); NEUTROPHILS % 74.5 % (40.0-76.0); PLATELET 400 x1000/uL (130-400); RED BLOOD CELL COUNT 3.52 mill/uL (4.7-6.1)
[2018-06-08 05:42] LABS: CHLORIDE 100 mEq/L (98-107)
[2018-06-08 05:47] LABS: PHOSPHORUS 3.1 mg/dL (2.5-4.9)
[2018-06-08 07:51] LABS: BG BASE EXCESS 5.6 mmol/L (-2.0-2.0); BG CARBOXYHEMOGLOBIN 0.5 % (0.5-1.5); BG DEOXYHEMOGLOBIN 10.4 % (0.0-5.0); BG HCO3 ACT 29.8 mmol/L (22.0-26.0); BG METHEMOGLOBIN 0.1 % (0.0-1.5); BG OXYGEN SATURATION 89.5 % (92.0-98.5); BG PCO2 41.7 mmHg (35.0-45.0); BG PH 7.472 (7.350-7.450); BG PO2 54.4 mmHg (75.0-100.0); BG SAMPLE SITE RIGHT RADIAL; BG TOTAL HEMOGLOBIN 12.7 g/dL (12.0-18.0); BG VENT MODE VENT - SIMV; BG VENT RATE 8 set
[2018-06-08] MEDS: PANTOPRAZOLE SODIUM 40 MG/VIAL IV SCH (08:42)
[2018-06-08] MEDS: ENOXAPARIN 40MG/0.4ML SYR SUBCUT SCH (08:43)
[2018-06-08] MEDS: LAMOTRIGINE 100MG TABLET PO SCH ×2 (08:43→16:32)
[2018-06-08] MEDS: DEXT 5%/0.45% NACL KCL 10MEQ/L 1,000 ML IV SCH ×2 (09:19→23:39)
[2018-06-08] MEDS: AZITHROMYCIN 500 MG in DEXT 5% WATER 250 ML IV SCH (09:20)
[2018-06-08 10:25] LABS: BG BASE EXCESS 6.4 mmol/L (-2.0-2.0); BG CARBOXYHEMOGLOBIN 0.5 % (0.5-1.5); BG DEOXYHEMOGLOBIN 4.1 % (0.0-5.0); BG FRACTION INSPIRED OXYGEN 50; BG HCO3 ACT 31.2 mmol/L (22.0-26.0); BG METHEMOGLOBIN 0.2 % (0.0-1.5); BG OXYGEN SATURATION 95.9 % (92.0-98.5); BG OXYHEMOGLOBIN 95.2 % (94.0-97.0); BG PCO2 46.1 mmHg (35.0-45.0); BG PH 7.449 (7.350-7.450); BG PO2 84.5 mmHg (75.0-100.0); BG SAMPLE SITE RIGHT RADIAL; BG TIDAL VOLUME(mL) 500 mL; BG TOTAL HEMOGLOBIN 12.4 g/dL (12.0-18.0); BG VENT MODE VENT - A/C; BG VENT RATE 12 set
[2018-06-08] MEDS ORDERED: INSULIN GLARGINE UD 100 UNITS/ML SYR SUBCUT NR (10:30)
[2018-06-08] MEDS: CEFTRIAXONE 2 G in DEXTROSE 5% WATER 50 ML IV SCH (11:49)
[2018-06-08] MEDS: METOCLOPRAMIDE HCL 10MG/2ML VIAL IV SCH ×3 (11:50→23:38)
[2018-06-08] MEDS: FENTANYL CITRATE/PF 1,000 MCG in SODIUM CHLORIDE 0.9% 80 ML IV PRN (18:22)
[2018-06-08] MEDS: QUETIAPINE FUMARATE 25MG TABLET PO SCH (20:21)
[2018-06-09] VITALS (63 sets, daily range): BP systolic 105–157; BP diastolic 53–100
[2018-06-09] MEDS: IPRATROPIUM/ALBUTEROL 0.5-3(2.5)MG/3ML NEB INH SCH ×6 (00:16→20:53)
[2018-06-09] MEDS: METHYLPREDNISOLONE SOD SUCC 40 MG/ML VIAL IV SCH ×3 (04:16→17:18)
[2018-06-09] MEDS: BLOOD SUGAR DIAGNOSTIC STRIP TEST SCH ×4 (04:16→15:19)
[2018-06-09] MEDS: INSULIN LISPRO 100 UNITS/ML SUBCUT SCH ×4 (04:18→16:00)
[2018-06-09 05:32] LABS: HEMATOCRIT. 34.4 % (42.0-52.0); HEMOGLOBIN. 11.4 g/dL (14.0-18.0); MEAN CORPUSCULAR HEMOGLOBIN 33.1 pg (28.0-32.0); MEAN PLATELET VOLUME 7.4 fl (7.4-10.4); PLATELET 412 x1000/uL (130-400); RED BLOOD CELL COUNT 3.44 mill/uL (4.7-6.1)
[2018-06-09 05:33] LABS: CHLORIDE 99 mEq/L (98-107)
[2018-06-09] MEDS: METOCLOPRAMIDE HCL 10MG/2ML VIAL IV SCH ×3 (05:55→17:17)
[2018-06-09 08:37] LABS: BG CARBOXYHEMOGLOBIN 0.6 % (0.5-1.5); BG DEOXYHEMOGLOBIN 2.2 % (0.0-5.0); BG FRACTION INSPIRED OXYGEN 50; BG HCO3 ACT 34.1 mmol/L (22.0-26.0); BG METHEMOGLOBIN 0.2 % (0.0-1.5); BG OXYGEN SATURATION 97.8 % (92.0-98.5); BG PCO2 48.8 mmHg (35.0-45.0); BG PH 7.462 (7.350-7.450); BG PO2 103.9 mmHg (75.0-100.0); BG SAMPLE SITE RIGHT RADIAL; BG TIDAL VOLUME(mL) 500 mL; BG TOTAL HEMOGLOBIN 12.5 g/dL (12.0-18.0); BG VENT MODE VENT - A/C; BG VENT RATE 12 set
[2018-06-09 08:45] LABS: PLATELET ESTIMATE MARKEDLY INCREASED
[2018-06-09] MEDS: ENOXAPARIN 40MG/0.4ML SYR SUBCUT SCH (08:53)
[2018-06-09] MEDS: PANTOPRAZOLE SODIUM 40 MG/VIAL IV SCH (08:53)
[2018-06-09] MEDS: LAMOTRIGINE 100MG TABLET PO SCH ×2 (08:53→17:17)
[2018-06-09 11:24] LABS: BG BASE EXCESS 7.8 mmol/L (-2.0-2.0); BG CARBOXYHEMOGLOBIN 0.5 % (0.5-1.5); BG DEOXYHEMOGLOBIN 4.2 % (0.0-5.0); BG FRACTION INSPIRED OXYGEN 40; BG HCO3 ACT 32.4 mmol/L (22.0-26.0); BG METHEMOGLOBIN 0.3 % (0.0-1.5); BG OXYGEN SATURATION 95.8 % (92.0-98.5); BG PCO2 45.3 mmHg (35.0-45.0); BG PH 7.472 (7.350-7.450); BG PO2 76.7 mmHg (75.0-100.0); BG PRESSURE SUPPORT 8; BG SAMPLE SITE RIGHT RADIAL; BG TOTAL HEMOGLOBIN 12.2 g/dL (12.0-18.0); BG VENT MODE VENT - CPAP
[2018-06-09] MEDS: SODIUM CHLORIDE 0.45% 1,000 ML IV SCH (14:43)
[2018-06-09] MEDS: QUETIAPINE FUMARATE 25MG TABLET PO SCH (20:34)
[2018-06-09] MEDS ORDERED: SODIUM CHL 0.9% + KCL 20MEQ/L 1,000 ML IV SCH (23:45)
[2018-06-10] VITALS (25 sets, daily range): BP systolic 112–152; BP diastolic 60–95
[2018-06-10] MEDS: BLOOD SUGAR DIAGNOSTIC STRIP TEST SCH ×4 (00:19→18:09)
[2018-06-10] MEDS: METOCLOPRAMIDE HCL 10MG/2ML VIAL IV SCH ×4 (00:20→17:26)
[2018-06-10] MEDS: INSULIN LISPRO 100 UNITS/ML SUBCUT SCH ×4 (00:25→18:14)
[2018-06-10] MEDS: IPRATROPIUM/ALBUTEROL 0.5-3(2.5)MG/3ML NEB INH SCH ×6 (01:07→20:58)
[2018-06-10] MEDS: METHYLPREDNISOLONE SOD SUCC 40 MG/ML VIAL IV SCH ×3 (01:23→17:26)
[2018-06-10 06:04] LABS: HEMATOCRIT. 34.9 % (42.0-52.0); HEMOGLOBIN. 11.5 g/dL (14.0-18.0); MEAN CORPUSCULAR HEMOGLOBIN 32.9 pg (28.0-32.0); MEAN CORPUSCULAR VOLUME 100.1 fL (80.0-94.0); MEAN PLATELET VOLUME 7.9 fl (7.4-10.4); PLATELET 430 x1000/uL (130-400); RED BLOOD CELL COUNT 3.49 mill/uL (4.7-6.1); RED CELL DISTRIBUTION WIDTH 13.6 % (11.6-14.6)
[2018-06-10 07:45] LABS: CHLORIDE 99 mEq/L (98-107)
[2018-06-10 07:52] LABS: PHOSPHORUS 2.6 mg/dL (2.5-4.9)
[2018-06-10] MEDS: ENOXAPARIN 40MG/0.4ML SYR SUBCUT SCH (09:30)
[2018-06-10] MEDS: LAMOTRIGINE 100MG TABLET PO SCH ×2 (09:30→17:26)
[2018-06-10] MEDS: SODIUM CHLORIDE 0.45% 1,000 ML IV SCH (10:24)
[2018-06-10 12:33] LABS: PLATELET ESTIMATE INCREASED
[2018-06-10] MEDS: QUETIAPINE FUMARATE 25MG TABLET PO SCH (22:47)
[2018-06-11] VITALS (11 sets, daily range): BP systolic 107–155; BP diastolic 66–96
[2018-06-11] MEDS: IPRATROPIUM/ALBUTEROL 0.5-3(2.5)MG/3ML NEB INH SCH ×7 (00:27→23:50)
[2018-06-11] MEDS: METOCLOPRAMIDE HCL 10MG/2ML VIAL IV SCH ×4 (01:29→17:55)
[2018-06-11] MEDS: INSULIN LISPRO 100 UNITS/ML SUBCUT SCH ×4 (01:37→17:54)
[2018-06-11] MEDS: BLOOD SUGAR DIAGNOSTIC STRIP TEST SCH ×4 (05:37→17:43)
[2018-06-11] MEDS: SODIUM CHLORIDE 0.45% 1,000 ML IV SCH (05:38)
[2018-06-11 05:43] LABS: BASOPHILS % 0.1 % (0.0-2.0); HEMATOCRIT. 35.7 % (42.0-52.0); HEMOGLOBIN. 12.1 g/dL (14.0-18.0); LYMPHOCYTES % 20.2 % (20.0-50.0); MEAN CORPUSCULAR HEMOGLOBIN 33.7 pg (28.0-32.0); MEAN CORPUSCULAR VOLUME 99.4 fL (80.0-94.0); MEAN PLATELET VOLUME 7.8 fl (7.4-10.4); MONOCYTES % 7.6 % (2.0-8.0); NEUTROPHILS % 72.1 % (40.0-76.0); PLATELET 423 x1000/uL (130-400); RED CELL DISTRIBUTION WIDTH 13.6 % (11.6-14.6)
[2018-06-11 06:35] LABS: CHLORIDE 100 mEq/L (98-107)
[2018-06-11 06:41] LABS: PHOSPHORUS 1.9 mg/dL (2.5-4.9)
[2018-06-11] MEDS: METHYLPREDNISOLONE SOD SUCC 40 MG/ML VIAL IV SCH (09:46)
[2018-06-11] MEDS: LAMOTRIGINE 100MG TABLET PO SCH ×2 (09:46→17:51)
[2018-06-11] MEDS: ENOXAPARIN 40MG/0.4ML SYR SUBCUT SCH (09:47)
[2018-06-11] MEDS ORDERED: POTASSIUM PHOS,M-BASIC-D-BASIC 30 MMOL in DEXT 5% WATER 500 ML IV NR (10:00)
[2018-06-11] MEDS: BUDESONIDE 0.5MG/2ML NEB HHN SCH (20:04)
[2018-06-11] MEDS: QUETIAPINE FUMARATE 25MG TABLET PO SCH (21:53)
[2018-06-12] VITALS (11 sets, daily range): BP systolic 106–145; BP diastolic 56–96
[2018-06-12] MEDS: IPRATROPIUM/ALBUTEROL 0.5-3(2.5)MG/3ML NEB INH SCH ×4 (04:08→16:00)
[2018-06-12] MEDS: METOCLOPRAMIDE HCL 10MG/2ML VIAL IV SCH ×4 (06:18→17:11)
[2018-06-12] MEDS: BLOOD SUGAR DIAGNOSTIC STRIP TEST SCH ×4 (06:21→16:52)
[2018-06-12] MEDS: INSULIN LISPRO 100 UNITS/ML SUBCUT SCH ×5 (06:29→17:12)
[2018-06-12] MEDS: ENOXAPARIN 40MG/0.4ML SYR SUBCUT SCH (08:44)
[2018-06-12] MEDS: LAMOTRIGINE 100MG TABLET PO SCH ×2 (08:45→17:11)
[2018-06-12] MEDS ORDERED: METHYLPREDNISOLONE SOD SUCC 40 MG/ML VIAL IV SCH (09:00)
[2018-06-12 11:17] LABS: BASOPHILS % 0.2 % (0.0-2.0); EOSINOPHILS % 0.1 % (0.0-5.0); HEMATOCRIT. 39.4 % (42.0-52.0); HEMOGLOBIN. 13.2 g/dL (14.0-18.0); LYMPHOCYTES % 8.4 % (20.0-50.0); MEAN CORPUSCULAR VOLUME 98.9 fL (80.0-94.0); MEAN PLATELET VOLUME 7.7 fl (7.4-10.4); MONOCYTES % 3.6 % (2.0-8.0); NEUTROPHILS % 87.7 % (40.0-76.0); PLATELET 434 x1000/uL (130-400); RED BLOOD CELL COUNT 3.98 mill/uL (4.7-6.1)
[2018-06-12 11:45] LABS: CHLORIDE 99 mEq/L (98-107)
[2018-06-12 11:51] LABS: PHOSPHORUS 2.7 mg/dL (2.5-4.9)
[2018-06-12] MEDS: BUDESONIDE 0.5MG/2ML NEB HHN SCH (12:17)
[2018-06-12] MEDS ORDERED: NA P230E PR (20:22)
[2018-06-12] MEDS ORDERED: BLOO-1379 TEST (20:22)
[2018-06-12] MEDS ORDERED: IPRA3AMP9 HHN ×2 (20:22)
[2018-06-12] MEDS ORDERED: QUET25TA34 PO (20:22)
[2018-06-12] MEDS ORDERED: MAG-93 MT (20:22)
[2018-06-12] MEDS ORDERED: ACET-2853 PO (20:22)
[2018-06-12] MEDS ORDERED: [UNRECOGNIZED DRUG - OTHER] IV (20:22)
[2018-06-12] MEDS ORDERED: DEXTL MT (20:22)
[2018-06-12] MEDS ORDERED: DIPH25CA83 MT (20:22)
[2018-06-12] MEDS ORDERED: LAMO200T PO (20:22)
[2018-06-12] MEDS ORDERED: ACET650S27 RC (20:22)
[2018-06-12] MEDS ORDERED: BUDE0.5A3 NEB (20:22)
[2018-06-12] MEDS ORDERED: ONDA4TAB5 IV (20:22)
[2018-06-12] MEDS ORDERED: DOCU-138 MT (20:22)
[2018-06-12] MEDS ORDERED: ENOX40DI8 SQ (20:22)
[2018-06-12] MEDS ORDERED: METO5VIA3 IV (20:22)
[2018-06-12] MEDS ORDERED: INSLIS SUBCUT (20:22)
[2018-06-12] MEDS ORDERED: CLON0.1T MT (20:22)
[2018-06-13] MEDS ORDERED: PREDNISONE 20MG TABLET PO NR (09:00)
== END 2018-06-12 18:10 | DRG 870 ==
LOC: ER 00:50 → EDBEDREQ 02:15 → EDBEDREQSVC 02:15 → EDBEDREQTM 02:15 → EDBEDREQ 08:14 → EDBEDREQTM 08:14 → EDBEDREQSVC 08:14 → ENRESERV 08:43 → CMPBEDREQ 09:16 → 5WST 09:19 → 3WST 16:58 → MICUNO 19:25 → MICUSO 06-09 15:47 → 5EST 06-10 15:23
PROVIDERS: ADMIT Family Medicine; ATTEND Family Medicine
PROC: 5A1955Z Respiratory Ventilation, Greater than 96 Consecutive Hours (ICD-10-PCS; principal; 2018-05-31)
PROC: 0BH17EZ Insertion of Endotracheal Airway into Trachea, Via Natural or Artificial Opening (ICD-10-PCS; 2018-05-31)
PROC: 5A09357 Assistance with Respiratory Ventilation, Less than 24 Consecutive Hours, Continuous Positive Airway Pressure (ICD-10-PCS; 2018-05-31)
PROC: 02HV33Z Insertion of Infusion Device into Superior Vena Cava, Percutaneous Approach (ICD-10-PCS; 2018-06-01)
PROC: B548ZZA Ultrasonography of Superior Vena Cava, Guidance (ICD-10-PCS; 2018-06-01)
DX: A41.9 Sepsis, unspecified organism (principal); J96.00 Acute respiratory failure, unspecified whether with hypoxia or hypercapnia; J68.0 Bronchitis and pneumonitis due to chemicals, gases, fumes and vapors; N17.9 Acute kidney failure, unspecified; J44.1 Chronic obstructive pulmonary disease with (acute) exacerbation; T40.5X1A Poisoning by cocaine, accidental (unintentional), initial encounter; E11.65 Type 2 diabetes mellitus with hyperglycemia; E11.22 Type 2 diabetes mellitus with diabetic chronic kidney disease; E11.43 Type 2 diabetes mellitus with diabetic autonomic (poly)neuropathy; E78.1 Pure hyperglyceridemia; E78.5 Hyperlipidemia, unspecified; E87.5 Hyperkalemia; F17.210 Nicotine dependence, cigarettes, uncomplicated; G40.909 Epilepsy, unspecified, not intractable, without status epilepticus; I12.9 Hypertensive chronic kidney disease with stage 1 through stage 4 chronic kidney disease, or unspecified chronic kidney disease; S30.820A Blister (nonthermal) of lower back and pelvis, initial encounter; X58.XXXA Exposure to other specified factors, initial encounter; K31.84 Gastroparesis; F14.10 Cocaine abuse, uncomplicated; T38.0X5A Adverse effect of glucocorticoids and synthetic analogues, initial encounter; K56.41 Fecal impaction; N18.9 Chronic kidney disease, unspecified; Z78.1 Physical restraint status; Z79.4 Long term (current) use of insulin; Z88.2 Allergy status to sulfonamides; Z99.81 Dependence on supplemental oxygen; Z79.899 Other long term (current) drug therapy; Y93.89 Activity, other specified; Y92.89 Other specified places as the place of occurrence of the external cause; Y99.8 Other external cause status; Z71.6 Tobacco abuse counseling
CPT/HCPCS: 31500; 36415; 36569; 36600; 71045; 74018; 76770; 76937; 80048; 80053; 80061; 80305; 81003; 82375; 82570; 82805; 82962; 83036; 83735; 83880; 83935; 84100; 84156; 84300; 84439; 84443; 84484; 85025; 87040; 87070; 87086; 92610; 93005; 94002; 94003; 94640; 94644; 94660; 96365; 96366; 96367; 96375; 97163; 97167; 97530; 99291; C1725; C9113; J0280; J0330; J0456; J0610; J0696; J1160; J1200; J1650; J1815; J1885; J1940; J2060; J2250; J2405; J2704; J2765; J2920; J2930; J3010; J3105; J3475; J3490; J7030; J7040; J7050; J7060; J7070; J7611; J7620; J7626; A4315

== ENCOUNTER 2018-06-12 18:05 | Inpatient (IN) | payer MEDICARE, MEDICAID ==
[~2018-06-12] VITALS: Ht 172.7 cm; Wt 78.0 kg
[~2018-06-12 18:05] MED LIST changes: +HYDR-4005 MT; +LAM2 MT; -LAMO150T PO; -LAMO200T PO
[2018-06-12 19:30] VITALS: BP 107/71
[2018-06-12] MEDS ORDERED: IPRATROPIUM/ALBUTEROL 0.5-3(2.5)MG/3ML NEB INH PRN (19:45)
[2018-06-12] MEDS ORDERED: DIPHENHYDRAMINE 50MG/ML VIAL IV PRN (19:45)
[2018-06-12] MEDS ORDERED: ACETAMINOPHEN 650MG SUPP PR PRN (19:45)
[2018-06-12] MEDS ORDERED: ACETAMINOPHEN 325MG TABLET PO PRN (19:45)
[2018-06-12] MEDS ORDERED: GUAIFENESIN 200MG/10ML SUGAR FREE UDC PO PRN (19:45)
[2018-06-12] MEDS ORDERED: ACETAMINOPHEN 650MG/20.3ML UDC GT PRN (19:45)
[2018-06-12] MEDS ORDERED: CLONIDINE 0.1MG TABLET PO PRN ×2 (19:45→20:45)
[2018-06-12] MEDS ORDERED: DOCUSATE SODIUM 100MG CAPSULE PO PRN (19:45)
[2018-06-12] MEDS ORDERED: MAGNESIUM/ALUMINUM HYDROXIDE/SIMETHICONE 30ML UDC PO PRN (19:45)
[2018-06-12 20:00] VITALS: BP 122/86
[2018-06-12] MEDS ORDERED: CLON0.1T MT (20:22)
[2018-06-12] MEDS ORDERED: [UNRECOGNIZED DRUG - OTHER] IV (20:22)
[2018-06-12] MEDS ORDERED: INSLIS SUBCUT (20:22)
[2018-06-12] MEDS ORDERED: ACET-2853 PO (20:22)
[2018-06-12] MEDS ORDERED: ACET650S27 RC (20:22)
[2018-06-12] MEDS ORDERED: METO5VIA3 IV (20:22)
[2018-06-12] MEDS ORDERED: DIPH25CA83 MT (20:22)
[2018-06-12] MEDS ORDERED: ENOX40DI8 SQ (20:22)
[2018-06-12] MEDS ORDERED: ONDA4TAB5 IV (20:22)
[2018-06-12] MEDS ORDERED: NA P230E PR (20:22)
[2018-06-12] MEDS ORDERED: MAG-93 MT (20:22)
[2018-06-12] MEDS ORDERED: BUDE0.5A3 NEB (20:22)
[2018-06-12] MEDS ORDERED: BLOO-1379 TEST (20:22)
[2018-06-12] MEDS ORDERED: LAMO200T PO (20:22)
[2018-06-12] MEDS ORDERED: DEXTL MT (20:22)
[2018-06-12] MEDS ORDERED: DOCU-138 MT (20:22)
[2018-06-12] MEDS ORDERED: IPRA3AMP9 HHN ×2 (20:22)
[2018-06-12] MEDS ORDERED: QUET25TA34 PO (20:22)
[2018-06-12] MEDS ORDERED: BLOOD SUGAR DIAGNOSTIC STRIP TEST SCH (20:45)
[2018-06-12] MEDS ORDERED: ACETAMINOPHEN 650MG SUPP RC PRN (20:45)
[2018-06-12] MEDS ORDERED: ENOXAPARIN 40MG/0.4ML SYR SUBCUT SCH (20:45)
[2018-06-12] MEDS ORDERED: IPRATROPIUM/ALBUTEROL 0.5-3(2.5)MG/3ML NEB HHN PRN (20:45)
[2018-06-12] MEDS ORDERED: DIPHENHYDRAMINE 25MG CAPSULE PO PRN (20:45)
[2018-06-12] MEDS ORDERED: NA PHOS,M-B/NA PHOS,DI-BA ENEMA 118ML PR PRN (21:00)
[2018-06-12] MEDS: BUDESONIDE 0.5MG/2ML NEB HHN SCH (21:36)
[2018-06-12] MEDS: QUETIAPINE FUMARATE 25MG TABLET PO SCH (22:05)
[2018-06-12] MEDS: SODIUM CHLORIDE 0.9% INJ 3ML FLUSH IVF SCH (22:13)
[2018-06-13] MEDS ORDERED: IPRATROPIUM/ALBUTEROL 0.5-3(2.5)MG/3ML NEB INH SCH
[2018-06-13] MEDS: IPRATROPIUM/ALBUTEROL 0.5-3(2.5)MG/3ML NEB HHN SCH ×6 (01:50→21:56)
[2018-06-13 03:12] VITALS: BP 107/71
[2018-06-13] MEDS ORDERED: INFLUENZA VIRUS VACCINE 0.5ML SYR IM ONE (06:00)
[2018-06-13] MEDS: HYDROCODONE/ACETAMINOPHEN 5/325MG TABLET PO PRN ×3 (06:30→20:42)
[2018-06-13] MEDS: SODIUM CHLORIDE 0.9% INJ 3ML FLUSH IVF SCH ×3 (06:31→21:24)
[2018-06-13] MEDS: BUDESONIDE 0.5MG/2ML NEB HHN SCH ×2 (07:27→21:55)
[2018-06-13 08:20] VITALS: BP 118/79
[2018-06-13] MEDS ORDERED: ENOXAPARIN 40MG/0.4ML SYR SUBCUT SCH (09:00)
[2018-06-13] MEDS ORDERED: DEXTROSE 50% WATER 50ML SYRINGE IV PRN (14:15)
[2018-06-13] MEDS: LAMOTRIGINE 100MG TABLET PO SCH ×2 (16:20→20:42)
[2018-06-13] MEDS: BLOOD SUGAR DIAGNOSTIC STRIP TEST SCH ×2 (17:02→20:50)
[2018-06-13] MEDS: INSULIN LISPRO 100 UNITS/ML SUBCUT SCH ×2 (17:53→20:49)
[2018-06-13] MEDS ORDERED: DOCUSATE SODIUM 100MG CAPSULE PO SCH (18:00)
[2018-06-13] MEDS ORDERED: BISACODYL 5MG TABLET PO PRN (18:00)
[2018-06-13 20:00] VITALS: BP 142/67
[2018-06-13] MEDS: QUETIAPINE FUMARATE 25MG TABLET PO SCH (20:49)
[2018-06-14] MEDS: IPRATROPIUM/ALBUTEROL 0.5-3(2.5)MG/3ML NEB HHN SCH ×4 (01:27→09:25)
[2018-06-14] MEDS: INSULIN LISPRO 100 UNITS/ML SUBCUT SCH (05:40)
[2018-06-14] MEDS: BLOOD SUGAR DIAGNOSTIC STRIP TEST SCH (05:40)
[2018-06-14] MEDS: SODIUM CHLORIDE 0.9% INJ 3ML FLUSH IVF SCH (06:00)
[2018-06-14 08:00] VITALS: BP 115/74
[2018-06-14] MEDS: BUDESONIDE 0.5MG/2ML NEB HHN SCH (09:25)
== END 2018-06-14 10:39 | disposition left against medical advice (07) | DRG 73 ==
PROVIDERS: ADMIT Psychiatry & Neurology Neurology; ATTEND Family Medicine
DX: G62.9 Polyneuropathy, unspecified (principal); A41.9 Sepsis, unspecified organism; J96.90 Respiratory failure, unspecified, unspecified whether with hypoxia or hypercapnia; N17.9 Acute kidney failure, unspecified; Z72.0 Tobacco use; J44.9 Chronic obstructive pulmonary disease, unspecified; R11.10 Vomiting, unspecified; G40.909 Epilepsy, unspecified, not intractable, without status epilepticus; E11.9 Type 2 diabetes mellitus without complications; R53.1 Weakness; Z99.81 Dependence on supplemental oxygen; I10 Essential (primary) hypertension; F41.9 Anxiety disorder, unspecified; M19.90 Unspecified osteoarthritis, unspecified site; Z85.46 Personal history of malignant neoplasm of prostate; Z60.2 Problems related to living alone; Z88.6 Allergy status to analgesic agent; Z88.2 Allergy status to sulfonamides
CPT/HCPCS: 82962; 90686; 92523; 94640; 97116; 97162; 97167; 97530; 97535; J1650; J1815; J7620; J7626

== ENCOUNTER 2019-11-01 01:33 | Inpatient (IN) | payer MEDICARE, MEDICAID ==
[~2019-11-01] VITALS: Ht 167.6 cm; Wt 78.1 kg
[~2019-11-01 01:33] MED LIST changes: +ACET650S27 RC; +ACET650T37 PO; +BLOO-1379 TEST; +BUDE0.5A3 NEB; +CLON0.1T MT; +DEXTL MT; +DIPH25CA83 MT; +DOCU-138 MT; +ENOX40DI8 SQ; +INSLIS SUBCUT; +IPRA3AMP9 HHN; +LAMO200T9 PO; +MAG-93 MT; +METO5VIA3 IV; +NA P230E PR; +OLME40TA11 PO; -OLME40TA12 PO; +ONDA4TAB5 IV; +QUET25TA34 PO; +[UNRECOGNIZED DRUG - OTHER] IV
[2019-11-01] MEDS ORDERED: IPRATROPIUM BROMIDE (0.02%) 0.5MG/2.5ML NEB HHN STA (01:41)
[2019-11-01] MEDS ORDERED: METHYLPREDNISOLONE SOD SUCC 125 MG/2 ML VIAL IV STA (01:41)
[2019-11-01] MEDS ORDERED: TERBUTALINE SULFATE 1MG/ML VIAL SUBCUT ONE (01:45)
[2019-11-01] MEDS ORDERED: MAGNESIUM 2 G PREMIX 50 ML IV ONE ×2 (01:45→21:45)
[2019-11-01] MEDS ORDERED: FUROSEMIDE 40MG/4ML VIAL IV ONE (01:45)
[2019-11-01] MEDS ORDERED: NITROGLYCERIN OINT 1GM/INCH UDPKT TD ONE (01:45)
[2019-11-01 01:56] LABS: BASOPHILS % 1.2 % (0.0-2.0); HEMATOCRIT. 42.3 % (42.0-52.0); HEMOGLOBIN. 14.1 g/dL (14.0-18.0); LYMPHOCYTES % 9.5 % (20.0-50.0); MEAN CORPUSCULAR HEMOGLOBIN 32.6 pg (28.0-32.0); MEAN CORPUSCULAR VOLUME 97.8 fL (80.0-94.0); MEAN PLATELET VOLUME 7.6 fl (7.4-10.4); MONOCYTES % 9.8 % (2.0-8.0); NEUTROPHILS % 79.5 % (40.0-76.0); PLATELET 303 x1000/uL (130-400); RED BLOOD CELL COUNT 4.33 mill/uL (4.7-6.1)
[2019-11-01] MEDS: ALBUTEROL (0.083%) 2.5MG/3ML NEB HHN SCH ×3 (01:58→03:02)
[2019-11-01 01:59] LABS: CHLORIDE 109 mEq/L (98-107)
[2019-11-01 02:18] LABS: PROTHROMBIN TIME 10.5 sec (9.6-11.0)
[2019-11-01] MEDS ORDERED: MORPHINE SULFATE 4 MG/ML CPJ (NOT FOR IM USE) IV STA (03:07)
[2019-11-01] MEDS ORDERED: ONDANSETRON HCL 4MG/2ML INJ IV STA (03:07)
[2019-11-01] MEDS ORDERED: MORPHINE SULFATE 2 MG/ML CPJ (NOT FOR IM USE) IV PRN (07:15)
[2019-11-01] MEDS ORDERED: GUAIFENESIN 200MG/10ML SUGAR FREE UDC PO PRN (07:15)
[2019-11-01] MEDS ORDERED: MAGNESIUM/ALUMINUM HYDROXIDE/SIMETHICONE 30ML UDC PO PRN (07:15)
[2019-11-01] MEDS ORDERED: DOCUSATE SODIUM 100MG CAPSULE PO PRN (07:15)
[2019-11-01] MEDS ORDERED: DIPHENHYDRAMINE 50MG/ML VIAL IV PRN (07:15)
[2019-11-01] MEDS ORDERED: HYDROCODONE/ACETAMINOPHEN 10/325MG TABLET PO PRN (07:15)
[2019-11-01] MEDS ORDERED: CLONIDINE 0.1MG TABLET PO PRN (07:15)
[2019-11-01 09:53] LABS: BG BASE EXCESS -3.5 mmol/L (-2.0-2.0); BG BILEVEL POS AIRWAY PRESSURE 18/5; BG CARBOXYHEMOGLOBIN 0.1 % (0.5-1.5); BG DEOXYHEMOGLOBIN 0.5 % (0.0-5.0); BG FRACTION INSPIRED OXYGEN 60; BG HCO3 ACT 24.5 mmol/L (22.0-26.0); BG METHEMOGLOBIN 0.4 % (0.0-1.5); BG OXYGEN SATURATION 99.5 % (92.0-98.5); BG PCO2 57.4 mmHg (35.0-45.0); BG PH 7.249 (7.350-7.450); BG PO2 281.3 mmHg (75.0-100.0); BG SAMPLE SITE RIGHT BRACHIAL; BG TOTAL HEMOGLOBIN 13.4 g/dL (12.0-18.0); BG VENT MODE MASK - BIPAP; BG VENT RATE 20 set
[2019-11-01 12:40] LABS: T4 FREE 1.19 ng/dL (0.76-1.46)
[2019-11-01] MEDS: LORAZEPAM 2MG/ML CPJ IV PRN ×2 (14:29→21:08)
[2019-11-01] MEDS: IPRATROPIUM/ALBUTEROL 0.5-3(2.5)MG/3ML NEB HHN PRN ×2 (14:40→23:08)
[2019-11-01] MEDS: SODIUM CHLORIDE 0.9% INJ 3ML FLUSH IVF SCH (15:23)
[2019-11-01 16:01] LABS: CREATINE KINASE MB FRACTION 4.2 ng/mL (0.5-3.6)
[2019-11-01] MEDS: ENOXAPARIN 40MG/0.4ML SYR SUBCUT SCH (17:03)
[2019-11-01 19:01] LABS: BG BASE EXCESS -1.2 mmol/L (-2.0-2.0); BG BILEVEL POS AIRWAY PRESSURE 20/5; BG CARBOXYHEMOGLOBIN 0.2 % (0.5-1.5); BG FRACTION INSPIRED OXYGEN 50; BG HCO3 ACT 27.9 mmol/L (22.0-26.0); BG METHEMOGLOBIN 0.6 % (0.0-1.5); BG OXYHEMOGLOBIN 98.2 % (94.0-97.0); BG PH 7.237 (7.350-7.450); BG PO2 184.7 mmHg (75.0-100.0); BG SAMPLE SITE RIGHT RADIAL; BG VENT MODE MASK - BIPAP; BG VENT RATE 20 set
[2019-11-01] MEDS ORDERED: KETAMINE HCL 50 MG/ML 10ML IV NR (19:15)
[2019-11-01] MEDS ORDERED: EPINEPHRINE 1:1000 1 MG/ML AMP IM NR (19:15)
[2019-11-01 21:29] LABS: BG BILEVEL POS AIRWAY PRESSURE 20/5; BG CARBOXYHEMOGLOBIN 0.3 % (0.5-1.5); BG DEOXYHEMOGLOBIN 0.9 % (0.0-5.0); BG FRACTION INSPIRED OXYGEN 50; BG HCO3 ACT 30.6 mmol/L (22.0-26.0); BG METHEMOGLOBIN 0.4 % (0.0-1.5); BG OXYGEN SATURATION 99.1 % (92.0-98.5); BG OXYHEMOGLOBIN 98.4 % (94.0-97.0); BG PCO2 66.7 mmHg (35.0-45.0); BG PH 7.279 (7.350-7.450); BG PO2 170.7 mmHg (75.0-100.0); BG SAMPLE SITE RIGHT RADIAL; BG TOTAL HEMOGLOBIN 13.6 g/dL (12.0-18.0); BG VENT MODE MASK - BIPAP
[2019-11-01] MEDS ORDERED: KETAMINE HCL 50 MG/ML 10ML IV ONE (21:45)
[2019-11-01] MEDS ORDERED: EPINEPHRINE 1:1000 1 MG/ML AMP INJ ONE (21:45)
[2019-11-01] MEDS ORDERED: METHYLPREDNISOLONE SOD SUCC 125 MG/2 ML VIAL IV SCH (21:45)
[2019-11-01 22:56] LABS: CREATINE KINASE MB FRACTION 4.4 ng/mL (0.5-3.6)
[2019-11-02] VITALS (32 sets, daily range): BP systolic 82–143; BP diastolic 54–91
[2019-11-02] MEDS ORDERED: KETAMINE HCL 50 MG/ML 10ML IV ONE (00:15)
[2019-11-02] MEDS ORDERED: EPINEPHRINE 1:1000 1 MG/ML AMP INJ ONE (00:15)
[2019-11-02] MEDS ORDERED: KETAMINE HCL 50 MG/ML 10ML IV SCH (00:30)
[2019-11-02] MEDS ORDERED: EPINEPHRINE 1:1000 1 MG/ML AMP INJ SCH (00:30)
[2019-11-02 01:34] LABS: BG BASE EXCESS -2.2 mmol/L (-2.0-2.0); BG BILEVEL POS AIRWAY PRESSURE 20/5; BG CARBOXYHEMOGLOBIN 0.5 % (0.5-1.5); BG DEOXYHEMOGLOBIN 4.9 % (0.0-5.0); BG FRACTION INSPIRED OXYGEN 35; BG HCO3 ACT 26.4 mmol/L (22.0-26.0); BG METHEMOGLOBIN 0.4 % (0.0-1.5); BG OXYGEN SATURATION 95.1 % (92.0-98.5); BG OXYHEMOGLOBIN 94.2 % (94.0-97.0); BG PCO2 61.9 mmHg (35.0-45.0); BG PH 7.247 (7.350-7.450); BG SAMPLE SITE RIGHT RADIAL; BG TOTAL HEMOGLOBIN 14.4 g/dL (12.0-18.0); BG VENT MODE MASK - BIPAP
[2019-11-02] MEDS: IPRATROPIUM/ALBUTEROL 0.5-3(2.5)MG/3ML NEB HHN PRN (01:51)
[2019-11-02] MEDS ORDERED: IPRATROPIUM/ALBUTEROL 0.5-3(2.5)MG/3ML NEB HHN ONE (04:00)
[2019-11-02] MEDS: LORAZEPAM 2MG/ML CPJ IV PRN (04:32)
[2019-11-02 04:46] LABS: HEMATOCRIT. 41.6 % (42.0-52.0); HEMOGLOBIN. 13.8 g/dL (14.0-18.0); MEAN CORPUSCULAR VOLUME 99.1 fL (80.0-94.0); MEAN PLATELET VOLUME 7.6 fl (7.4-10.4); PLATELET 287 x1000/uL (130-400); RED BLOOD CELL COUNT 4.19 mill/uL (4.7-6.1); RED CELL DISTRIBUTION WIDTH 15.5 % (11.6-14.6)
[2019-11-02 04:54] LABS: CHLORIDE 107 mEq/L (98-107)
[2019-11-02 05:43] LABS: PLATELET ESTIMATE NORMAL
[2019-11-02 09:27] LABS: BG BASE EXCESS 5.3 mmol/L (-2.0-2.0); BG BILEVEL POS AIRWAY PRESSURE 20/5; BG CARBOXYHEMOGLOBIN 0.2 % (0.5-1.5); BG DEOXYHEMOGLOBIN 1.2 % (0.0-5.0); BG FRACTION INSPIRED OXYGEN 50; BG HCO3 ACT 33.9 mmol/L (22.0-26.0); BG METHEMOGLOBIN 0.4 % (0.0-1.5); BG OXYGEN SATURATION 98.8 % (92.0-98.5); BG OXYHEMOGLOBIN 98.2 % (94.0-97.0); BG PCO2 69.7 mmHg (35.0-45.0); BG PH 7.305 (7.350-7.450); BG PO2 155.3 mmHg (75.0-100.0); BG SAMPLE SITE RIGHT RADIAL; BG TOTAL HEMOGLOBIN 13.4 g/dL (12.0-18.0); BG VENT MODE MASK - BIPAP; BG VENT RATE 20 set
[2019-11-02] MEDS ORDERED: DIPHENHYDRAMINE 50MG/ML VIAL IV NR (09:45)
[2019-11-02] MEDS ORDERED: TERBUTALINE SULFATE 1MG/ML VIAL SUBCUT ONE (09:45)
[2019-11-02] MEDS: METHYLPREDNISOLONE SOD SUCC 125 MG/2 ML VIAL IV SCH ×3 (10:08→21:34)
[2019-11-02] MEDS ORDERED: PROPOFOL 10MG/ML 100ML 100 ML IV PRN (11:00)
[2019-11-02] MEDS ORDERED: ETOMIDATE 2MG/ML 10ML VIAL IV ONE (11:15)
[2019-11-02] MEDS ORDERED: LORAZEPAM 2MG/ML CPJ IV NR (11:15)
[2019-11-02] MEDS ORDERED: VECURONIUM BROMIDE 10 MG/VIAL IV ONE (11:15)
[2019-11-02] MEDS: IPRATROPIUM/ALBUTEROL 0.5-3(2.5)MG/3ML NEB HHN SCH ×3 (12:00→20:29)
[2019-11-02] MEDS: PROPOFOL 10MG/ML 100ML 100 ML IV PRN ×2 (12:45→19:18)
[2019-11-02] MEDS: FENTANYL CITRATE/PF 500 MCG in SODIUM CHLORIDE 0.9% 40 ML IV PRN ×2 (12:47→23:07)
[2019-11-02 12:58] LABS: BG BASE EXCESS 0.8 mmol/L (-2.0-2.0); BG CARBOXYHEMOGLOBIN 0.3 % (0.5-1.5); BG DEOXYHEMOGLOBIN 0.3 % (0.0-5.0); BG FRACTION INSPIRED OXYGEN 100; BG HCO3 ACT 28.7 mmol/L (22.0-26.0); BG METHEMOGLOBIN 0.2 % (0.0-1.5); BG OXYGEN SATURATION 99.7 % (92.0-98.5); BG OXYHEMOGLOBIN 99.2 % (94.0-97.0); BG PCO2 61.1 mmHg (35.0-45.0); BG PO2 498.8 mmHg (75.0-100.0); BG SAMPLE SITE RIGHT RADIAL; BG TIDAL VOLUME(mL) 500 mL; BG TOTAL HEMOGLOBIN 13.1 g/dL (12.0-18.0); BG VENT MODE VENT - A/C; BG VENT RATE 16 set
[2019-11-02] MEDS: SODIUM CHLORIDE 0.9% INJ 3ML FLUSH IVF SCH ×2 (13:22→21:34)
[2019-11-02] MEDS: ENOXAPARIN 40MG/0.4ML SYR SUBCUT SCH (16:55)
[2019-11-02] MEDS: MONTELUKAST SODIUM 10MG TABLET PO SCH (16:55)
[2019-11-02] MEDS: DEXT 5%/0.45% NACL 1000ML 1,000 ML IV SCH (19:51)
[2019-11-02] MEDS: FAMOTIDINE 20MG/2ML VIAL IV SCH (21:34)
[2019-11-03] VITALS (57 sets, daily range): BP systolic 85–162; BP diastolic 59–100
[2019-11-03] MEDS: PROPOFOL 10MG/ML 100ML 100 ML IV PRN ×3 (00:10→08:32)
[2019-11-03] MEDS: IPRATROPIUM/ALBUTEROL 0.5-3(2.5)MG/3ML NEB HHN SCH ×6 (00:53→20:17)
[2019-11-03] MEDS: METHYLPREDNISOLONE SOD SUCC 125 MG/2 ML VIAL IV SCH ×4 (04:32→21:08)
[2019-11-03 06:03] LABS: CHLORIDE 107 mEq/L (98-107)
[2019-11-03] MEDS: SODIUM CHLORIDE 0.9% INJ 3ML FLUSH IVF SCH ×3 (06:12→21:08)
[2019-11-03 07:23] LABS: BASOPHILS % 0.2 % (0.0-2.0); HEMATOCRIT. 38.6 % (42.0-52.0); HEMOGLOBIN. 12.8 g/dL (14.0-18.0); LYMPHOCYTES % 14.2 % (20.0-50.0); MEAN CORPUSCULAR HEMOGLOBIN 33.1 pg (28.0-32.0); MEAN CORPUSCULAR VOLUME 99.6 fL (80.0-94.0); MONOCYTES % 8.6 % (2.0-8.0); PLATELET 281 x1000/uL (130-400); RED BLOOD CELL COUNT 3.88 mill/uL (4.7-6.1); RED CELL DISTRIBUTION WIDTH 15.8 % (11.6-14.6)
[2019-11-03 08:23] LABS: BG BASE EXCESS 0.5 mmol/L (-2.0-2.0); BG CARBOXYHEMOGLOBIN 0.8 % (0.5-1.5); BG DEOXYHEMOGLOBIN 4.4 % (0.0-5.0); BG FRACTION INSPIRED OXYGEN 40; BG HCO3 ACT 26.8 mmol/L (22.0-26.0); BG METHEMOGLOBIN 0.3 % (0.0-1.5); BG OXYGEN SATURATION 95.6 % (92.0-98.5); BG OXYHEMOGLOBIN 94.5 % (94.0-97.0); BG PH 7.347 (7.350-7.450); BG PO2 77.7 mmHg (75.0-100.0); BG SAMPLE SITE RIGHT BRACHIAL; BG TIDAL VOLUME(mL) 500 mL; BG TOTAL HEMOGLOBIN 13.1 g/dL (12.0-18.0); BG VENT MODE VENT - A/C; BG VENT RATE 18 set
[2019-11-03] MEDS: FAMOTIDINE 20MG/2ML VIAL IV SCH ×2 (08:30→20:28)
[2019-11-03] MEDS: FENTANYL CITRATE/PF 500 MCG in SODIUM CHLORIDE 0.9% 40 ML IV PRN ×2 (08:53→17:45)
[2019-11-03] MEDS: ENOXAPARIN 40MG/0.4ML SYR SUBCUT SCH (10:25)
[2019-11-03] MEDS: BLOOD SUGAR DIAGNOSTIC STRIP TEST SCH ×2 (11:50→17:45)
[2019-11-03] MEDS: INSULIN LISPRO 100 UNITS/ML SUBCUT SCH ×2 (12:04→17:59)
[2019-11-03] MEDS: DEXT 5%/0.45% NACL 1000ML 1,000 ML IV SCH (13:10)
[2019-11-03] MEDS: MIDAZOLAM HCL 50 MG in DEXTROSE 5% WATER 40 ML IV PRN ×2 (13:11→17:39)
[2019-11-03 15:44] LABS: CLARITY URINE CLEAR (CLEAR); COLOR URINE YELLOW (YELLOW); KETONES URINE NEGATIVE (NEGATIVE); LEUKOCYTE ESTERASE URINE NEGATIVE (NEGATIVE); NITRITE URINE NEGATIVE (NEGATIVE); OCCULT BLOOD URINE TRACE (NEGATIVE); PROTEIN URINE TRACE (NEGATIVE); SPECIFIC GRAVITY URINE 1.021 (1.005-1.030); UROBILINOGEN URINE 0.2 E.U./dL (0.2-1.0)
[2019-11-03 16:04] LABS: *AMPHETAMINES SCREEN URINE NEGATIVE (NEGATIVE); *BARBITURATES SCREEN URINE NEGATIVE (NEGATIVE); *BENZODIAZEPINES SCREEN URINE NEGATIVE (NEGATIVE); CANNABINOID URINE SCREEN NEGATIVE (NEGATIVE)
[2019-11-03 16:05] LABS: *COCAINE SCREEN URINE NEGATIVE (NEGATIVE); METHADONE URINE SCREEN NEGATIVE (NEGATIVE); OPIATES URINE SCREEN NEGATIVE (NEGATIVE); PHENCYCLIDINE URINE SCREEN NEGATIVE (NEGATIVE)
[2019-11-03] MEDS: MONTELUKAST SODIUM 10MG TABLET PO SCH (16:37)
[2019-11-04] VITALS (54 sets, daily range): BP systolic 111–158; BP diastolic 52–107
[2019-11-04] MEDS: BLOOD SUGAR DIAGNOSTIC STRIP TEST SCH ×5 (00:03→23:26)
[2019-11-04] MEDS: INSULIN LISPRO 100 UNITS/ML SUBCUT SCH ×5 (00:04→23:50)
[2019-11-04] MEDS: MIDAZOLAM HCL 50 MG in DEXTROSE 5% WATER 40 ML IV PRN ×4 (00:05→23:53)
[2019-11-04] MEDS: IPRATROPIUM/ALBUTEROL 0.5-3(2.5)MG/3ML NEB HHN SCH ×7 (00:07→20:00)
[2019-11-04] MEDS: FENTANYL CITRATE/PF 500 MCG in SODIUM CHLORIDE 0.9% 40 ML IV PRN ×3 (00:16→17:07)
[2019-11-04] MEDS: METHYLPREDNISOLONE SOD SUCC 125 MG/2 ML VIAL IV SCH ×4 (04:19→23:20)
[2019-11-04] MEDS: SODIUM CHLORIDE 0.9% INJ 3ML FLUSH IVF SCH ×3 (05:17→22:00)
[2019-11-04 05:46] LABS: HEMATOCRIT. 40.4 % (42.0-52.0); HEMOGLOBIN. 13.2 g/dL (14.0-18.0); MEAN CORPUSCULAR HEMOGLOBIN 32.3 pg (28.0-32.0); MEAN CORPUSCULAR VOLUME 99.1 fL (80.0-94.0); MEAN PLATELET VOLUME 7.7 fl (7.4-10.4); PLATELET 309 x1000/uL (130-400); RED BLOOD CELL COUNT 4.08 mill/uL (4.7-6.1); RED CELL DISTRIBUTION WIDTH 15.3 % (11.6-14.6)
[2019-11-04 05:58] LABS: CHLORIDE 105 mEq/L (98-107)
[2019-11-04] MEDS: FAMOTIDINE 20MG/2ML VIAL IV SCH ×2 (08:11→20:13)
[2019-11-04] MEDS: DEXT 5%/0.45% NACL 1000ML 1,000 ML IV SCH (08:11)
[2019-11-04 08:26] LABS: BG BASE EXCESS 3.6 mmol/L (-2.0-2.0); BG CARBOXYHEMOGLOBIN 0.7 % (0.5-1.5); BG DEOXYHEMOGLOBIN 5.3 % (0.0-5.0); BG FRACTION INSPIRED OXYGEN 40; BG METHEMOGLOBIN 0.3 % (0.0-1.5); BG OXYGEN SATURATION 94.6 % (92.0-98.5); BG OXYHEMOGLOBIN 93.7 % (94.0-97.0); BG PCO2 59.6 mmHg (35.0-45.0); BG PH 7.334 (7.350-7.450); BG SAMPLE SITE RIGHT RADIAL; BG TIDAL VOLUME(mL) 500 mL; BG TOTAL HEMOGLOBIN 13.6 g/dL (12.0-18.0); BG VENT MODE VENT - A/C; BG VENT RATE 18 set
[2019-11-04] MEDS: IPRATROPIUM/ALBUTEROL 0.5-3(2.5)MG/3ML NEB HHN PRN ×3 (09:29→17:16)
[2019-11-04] MEDS ORDERED: DOCUSATE SODIUM SUGAR FREE 100MG/10ML UDC NG PRN (10:45)
[2019-11-04 12:02] LABS: PLATELET ESTIMATE NORMAL
[2019-11-04] MEDS ORDERED: HEPARIN 100 UNITS/1 ML VIAL IVF PRN (13:15)
[2019-11-04] MEDS: ENOXAPARIN 40MG/0.4ML SYR SUBCUT SCH (15:34)
[2019-11-04] MEDS: MONTELUKAST SODIUM 10MG TABLET PO SCH (17:14)
[2019-11-04] MEDS ORDERED: INSULIN GLARGINE UD 100 UNITS/ML SYR SUBCUT NR (20:00)
[2019-11-05] VITALS (52 sets, daily range): BP systolic 106–196; BP diastolic 66–110
[2019-11-05] MEDS: IPRATROPIUM/ALBUTEROL 0.5-3(2.5)MG/3ML NEB HHN SCH ×7 (00:10→23:55)
[2019-11-05] MEDS: HYDRALAZINE 20MG/ML VIAL IV PRN (02:25)
[2019-11-05 03:00] LABS: BG BASE EXCESS 3.9 mmol/L (-2.0-2.0); BG CARBOXYHEMOGLOBIN 0.5 % (0.5-1.5); BG DEOXYHEMOGLOBIN 5.6 % (0.0-5.0); BG FRACTION INSPIRED OXYGEN 40; BG HCO3 ACT 29.9 mmol/L (22.0-26.0); BG METHEMOGLOBIN 0.2 % (0.0-1.5); BG OXYGEN SATURATION 94.4 % (92.0-98.5); BG OXYHEMOGLOBIN 93.7 % (94.0-97.0); BG PCO2 50.3 mmHg (35.0-45.0); BG PH 7.392 (7.350-7.450); BG PO2 72.1 mmHg (75.0-100.0); BG SAMPLE SITE RIGHT RADIAL; BG TIDAL VOLUME(mL) 500 mL; BG TOTAL HEMOGLOBIN 13.8 g/dL (12.0-18.0); BG VENT MODE VENT - A/C; BG VENT RATE 18 set
[2019-11-05] MEDS: LORAZEPAM 2MG/ML CPJ IV PRN (03:23)
[2019-11-05] MEDS: FENTANYL CITRATE/PF 500 MCG in SODIUM CHLORIDE 0.9% 40 ML IV PRN ×2 (04:07→09:29)
[2019-11-05] MEDS: METHYLPREDNISOLONE SOD SUCC 125 MG/2 ML VIAL IV SCH ×4 (04:15→21:17)
[2019-11-05 06:00] LABS: CHLORIDE 104 mEq/L (98-107)
[2019-11-05 06:01] LABS: HEMATOCRIT. 38.2 % (42.0-52.0); HEMOGLOBIN. 12.4 g/dL (14.0-18.0); MEAN CORPUSCULAR HEMOGLOBIN 31.9 pg (28.0-32.0); MEAN CORPUSCULAR VOLUME 98.1 fL (80.0-94.0); MEAN PLATELET VOLUME 7.8 fl (7.4-10.4); PLATELET 304 x1000/uL (130-400); RED CELL DISTRIBUTION WIDTH 15.2 % (11.6-14.6)
[2019-11-05] MEDS: MIDAZOLAM HCL 50 MG in DEXTROSE 5% WATER 40 ML IV PRN ×2 (06:01→09:30)
[2019-11-05] MEDS: INSULIN LISPRO 100 UNITS/ML SUBCUT SCH ×4 (06:26→23:27)
[2019-11-05] MEDS: BLOOD SUGAR DIAGNOSTIC STRIP TEST SCH ×2 (06:28→23:21)
[2019-11-05] MEDS: SODIUM CHLORIDE 0.9% INJ 3ML FLUSH IVF SCH ×2 (06:28→21:17)
[2019-11-05] MEDS: DEXT 5%/0.45% NACL 1000ML 1,000 ML IV SCH (06:28)
[2019-11-05 08:09] LABS: BG BASE EXCESS 4.6 mmol/L (-2.0-2.0); BG CARBOXYHEMOGLOBIN 0.9 % (0.5-1.5); BG DEOXYHEMOGLOBIN 5.1 % (0.0-5.0); BG FRACTION INSPIRED OXYGEN 40; BG HCO3 ACT 30.3 mmol/L (22.0-26.0); BG METHEMOGLOBIN 0.3 % (0.0-1.5); BG OXYGEN SATURATION 94.8 % (92.0-98.5); BG OXYHEMOGLOBIN 93.7 % (94.0-97.0); BG PCO2 49.4 mmHg (35.0-45.0); BG PH 7.405 (7.350-7.450); BG PO2 72.9 mmHg (75.0-100.0); BG SAMPLE SITE RIGHT BRACHIAL; BG TIDAL VOLUME(mL) 500 mL; BG TOTAL HEMOGLOBIN 13.2 g/dL (12.0-18.0); BG VENT MODE VENT - A/C; BG VENT RATE 18 set
[2019-11-05] MEDS: FAMOTIDINE 20MG/2ML VIAL IV SCH ×2 (09:30→21:17)
[2019-11-05] MEDS ORDERED: INSULIN GLARGINE UD 100 UNITS/ML SYR SUBCUT SCH (10:00)
[2019-11-05 13:30] LABS: PLATELET ESTIMATE NORMAL
[2019-11-05] MEDS: FENTANYL CITRATE/PF 1,000 MCG in SODIUM CHLORIDE 0.9% 80 ML IV PRN (14:09)
[2019-11-05] MEDS: MIDAZOLAM HCL 100 MG in DEXT 5% WATER 80 ML IV PRN (14:10)
[2019-11-05] MEDS: MONTELUKAST SODIUM 10MG TABLET PO SCH (16:03)
[2019-11-05] MEDS: ENOXAPARIN 40MG/0.4ML SYR SUBCUT SCH (16:04)
[2019-11-05] MEDS: THEOPHYLLINE ANHYDROUS 80 MG/15 ML 120ML PO SCH (18:18)
[2019-11-05] MEDS: INSULIN GLARGINE UD 100 UNITS/ML SYR SUBCUT SCH (21:18)
[2019-11-06] VITALS (62 sets, daily range): BP systolic 108–160; BP diastolic 71–112
[2019-11-06] MEDS: THEOPHYLLINE ANHYDROUS 80 MG/15 ML 120ML PO SCH ×2 (00:11→09:31)
[2019-11-06] MEDS: METHYLPREDNISOLONE SOD SUCC 125 MG/2 ML VIAL IV SCH ×4 (03:07→21:29)
[2019-11-06] MEDS: DEXT 5%/0.45% NACL 1000ML 1,000 ML IV SCH (03:07)
[2019-11-06] MEDS: IPRATROPIUM/ALBUTEROL 0.5-3(2.5)MG/3ML NEB HHN SCH ×5 (04:21→19:48)
[2019-11-06] MEDS: BLOOD SUGAR DIAGNOSTIC STRIP TEST SCH ×4 (05:26→23:43)
[2019-11-06] MEDS: SODIUM CHLORIDE 0.9% INJ 3ML FLUSH IVF SCH ×3 (05:27→21:30)
[2019-11-06] MEDS: INSULIN LISPRO 100 UNITS/ML SUBCUT SCH ×4 (05:27→23:43)
[2019-11-06] MEDS: MIDAZOLAM HCL 100 MG in DEXT 5% WATER 80 ML IV PRN ×2 (05:35→18:51)
[2019-11-06] MEDS: FENTANYL CITRATE/PF 1,000 MCG in SODIUM CHLORIDE 0.9% 80 ML IV PRN ×2 (05:37→17:16)
[2019-11-06 06:46] LABS: CHLORIDE 100 mEq/L (98-107)
[2019-11-06 07:19] LABS: HEMATOCRIT. 39.7 % (42.0-52.0); HEMOGLOBIN. 13.1 g/dL (14.0-18.0); MEAN CORPUSCULAR HEMOGLOBIN 32.3 pg (28.0-32.0); MEAN CORPUSCULAR VOLUME 98.1 fL (80.0-94.0); MEAN PLATELET VOLUME 8.4 fl (7.4-10.4); PLATELET 318 x1000/uL (130-400); RED BLOOD CELL COUNT 4.04 mill/uL (4.7-6.1); RED CELL DISTRIBUTION WIDTH 15.4 % (11.6-14.6)
[2019-11-06] MEDS: FAMOTIDINE 20MG/2ML VIAL IV SCH ×2 (09:29→21:29)
[2019-11-06] MEDS: INSULIN GLARGINE UD 100 UNITS/ML SYR SUBCUT SCH ×2 (09:31→22:09)
[2019-11-06 10:45] LABS: PLATELET ESTIMATE NORMAL
[2019-11-06] MEDS: DILTIAZEM HCL 125 MG in DEXT 5% WATER 100 ML IV PRN (14:53)
[2019-11-06] MEDS: ENOXAPARIN 40MG/0.4ML SYR SUBCUT SCH (14:55)
[2019-11-06] MEDS: MONTELUKAST SODIUM 10MG TABLET PO SCH (16:34)
[2019-11-07] VITALS (91 sets, daily range): BP systolic 107–172; BP diastolic 68–108
[2019-11-07] MEDS: IPRATROPIUM/ALBUTEROL 0.5-3(2.5)MG/3ML NEB HHN SCH ×6 (00:05→20:10)
[2019-11-07] MEDS: METHYLPREDNISOLONE SOD SUCC 125 MG/2 ML VIAL IV SCH ×4 (03:31→21:15)
[2019-11-07] MEDS: FENTANYL CITRATE/PF 1,000 MCG in SODIUM CHLORIDE 0.9% 80 ML IV PRN ×3 (03:32→23:00)
[2019-11-07] MEDS: BLOOD SUGAR DIAGNOSTIC STRIP TEST SCH ×4 (05:27→23:27)
[2019-11-07] MEDS: INSULIN LISPRO 100 UNITS/ML SUBCUT SCH ×4 (05:27→23:26)
[2019-11-07] MEDS: SODIUM CHLORIDE 0.9% INJ 3ML FLUSH IVF SCH ×3 (05:27→21:15)
[2019-11-07 05:58] LABS: HEMATOCRIT. 39.2 % (42.0-52.0); HEMOGLOBIN. 12.7 g/dL (14.0-18.0); MEAN CORPUSCULAR HEMOGLOBIN 31.6 pg (28.0-32.0); MEAN CORPUSCULAR VOLUME 97.8 fL (80.0-94.0); MEAN PLATELET VOLUME 8.4 fl (7.4-10.4); PLATELET 297 x1000/uL (130-400); RED BLOOD CELL COUNT 4.01 mill/uL (4.7-6.1); RED CELL DISTRIBUTION WIDTH 14.8 % (11.6-14.6)
[2019-11-07 06:09] LABS: CHLORIDE 102 mEq/L (98-107)
[2019-11-07] MEDS: MIDAZOLAM HCL 100 MG in DEXT 5% WATER 80 ML IV PRN ×2 (06:23→18:52)
[2019-11-07 08:40] LABS: BG BASE EXCESS 10.6 mmol/L (-2.0-2.0); BG CARBOXYHEMOGLOBIN 1.5 % (0.5-1.5); BG DEOXYHEMOGLOBIN 3.2 % (0.0-5.0); BG FRACTION INSPIRED OXYGEN 45; BG METHEMOGLOBIN 0.3 % (0.0-1.5); BG PCO2 61.4 mmHg (35.0-45.0); BG PH 7.409 (7.350-7.450); BG PO2 90.4 mmHg (75.0-100.0); BG SAMPLE SITE RIGHT RADIAL; BG TIDAL VOLUME(mL) 550 mL; BG TOTAL HEMOGLOBIN 13.6 g/dL (12.0-18.0); BG VENT MODE VENT - A/C; BG VENT RATE 16 set
[2019-11-07 09:24] LABS: CHLORIDE 102 mEq/L (98-107)
[2019-11-07] MEDS: FAMOTIDINE 20MG/2ML VIAL IV SCH ×2 (09:39→21:15)
[2019-11-07] MEDS: INSULIN GLARGINE UD 100 UNITS/ML SYR SUBCUT SCH ×2 (09:40→21:17)
[2019-11-07] MEDS ORDERED: TERBUTALINE SULFATE 1MG/ML VIAL SUBCUT NR (11:30)
[2019-11-07 12:43] LABS: PHOSPHORUS 3.7 mg/dL (2.5-4.9)
[2019-11-07] MEDS ORDERED: NON FORMULARY PATIENT HOME MED XX SCH (14:30)
[2019-11-07] MEDS: ACETYLCYSTEINE 100MG/ML 10% VIAL 4ML INH SCH (16:25)
[2019-11-07] MEDS: MONTELUKAST SODIUM 10MG TABLET PO SCH (16:31)
[2019-11-07] MEDS: ENOXAPARIN 40MG/0.4ML SYR SUBCUT SCH (16:31)
[2019-11-07 19:06] LABS: PLATELET ESTIMATE NORMAL
[2019-11-07] MEDS: ACETAMINOPHEN 325MG TABLET PO PRN (23:25)
[2019-11-08] VITALS (96 sets, daily range): BP systolic 96–148; BP diastolic 61–95
[2019-11-08] MEDS: IPRATROPIUM/ALBUTEROL 0.5-3(2.5)MG/3ML NEB HHN SCH ×6 (00:17→20:05)
[2019-11-08] MEDS: ACETYLCYSTEINE 100MG/ML 10% VIAL 4ML INH SCH ×3 (00:17→16:42)
[2019-11-08] MEDS: BLOOD SUGAR DIAGNOSTIC STRIP TEST SCH ×4 (05:14→23:08)
[2019-11-08] MEDS: METHYLPREDNISOLONE SOD SUCC 125 MG/2 ML VIAL IV SCH ×4 (05:14→21:46)
[2019-11-08] MEDS: SODIUM CHLORIDE 0.9% INJ 3ML FLUSH IVF SCH ×3 (05:14→21:46)
[2019-11-08] MEDS: INSULIN LISPRO 100 UNITS/ML SUBCUT SCH ×4 (05:15→23:08)
[2019-11-08 05:50] LABS: CHLORIDE 98 mEq/L (98-107)
[2019-11-08 06:01] LABS: HEMATOCRIT. 40.1 % (42.0-52.0); HEMOGLOBIN. 12.8 g/dL (14.0-18.0); MEAN CORPUSCULAR HEMOGLOBIN 31.2 pg (28.0-32.0); PLATELET 348 x1000/uL (130-400); RED BLOOD CELL COUNT 4.09 mill/uL (4.7-6.1); RED CELL DISTRIBUTION WIDTH 15.2 % (11.6-14.6)
[2019-11-08] MEDS: MIDAZOLAM HCL 100 MG in DEXT 5% WATER 80 ML IV PRN ×2 (06:38→16:15)
[2019-11-08] MEDS ORDERED: LACTULOSE 20G/30ML UDC PO NR (08:00)
[2019-11-08] MEDS ORDERED: BISACODYL 10MG SUPP PR PRN (08:00)
[2019-11-08 08:11] LABS: BG BASE EXCESS 10.6 mmol/L (-2.0-2.0); BG CARBOXYHEMOGLOBIN 0.3 % (0.5-1.5); BG HCO3 ACT 37.6 mmol/L (22.0-26.0); BG METHEMOGLOBIN 0.2 % (0.0-1.5); BG OXYHEMOGLOBIN 94.5 % (94.0-97.0); BG PCO2 60.9 mmHg (35.0-45.0); BG PH 7.409 (7.350-7.450); BG PO2 74.9 mmHg (75.0-100.0); BG SAMPLE SITE RIGHT RADIAL; BG TIDAL VOLUME(mL) 550 mL; BG TOTAL HEMOGLOBIN 13.6 g/dL (12.0-18.0); BG VENT MODE VENT - A/C; BG VENT RATE 16 set
[2019-11-08] MEDS: FAMOTIDINE 20MG/2ML VIAL IV SCH ×2 (09:21→20:06)
[2019-11-08] MEDS: SODIUM CHLORIDE 0.9% 1,000 ML IV SCH ×2 (09:21→21:45)
[2019-11-08] MEDS: QUETIAPINE FUMARATE 25MG TABLET PO SCH ×2 (09:21→20:07)
[2019-11-08] MEDS: DOCUSATE SODIUM SUGAR FREE 100MG/10ML UDC NG SCH (09:23)
[2019-11-08] MEDS: PIPERACILLIN/TAZOBACTAM 3.375 G in DEXT 5% WATER 100 ML IV SCH ×3 (09:51→20:07)
[2019-11-08] MEDS: INSULIN GLARGINE UD 100 UNITS/ML SYR SUBCUT SCH ×2 (09:52→21:46)
[2019-11-08] MEDS: FENTANYL CITRATE/PF 1,000 MCG in SODIUM CHLORIDE 0.9% 80 ML IV PRN ×2 (09:54→18:31)
[2019-11-08 10:46] LABS: PLATELET ESTIMATE NORMAL
[2019-11-08] MEDS ORDERED: SODIUM POLYSTYRENE SULFONATE 15 G/60 ML BOT PO SCH (15:30)
[2019-11-08] MEDS: ENOXAPARIN 40MG/0.4ML SYR SUBCUT SCH (16:14)
[2019-11-08] MEDS: MONTELUKAST SODIUM 10MG TABLET PO SCH (16:19)
[2019-11-08] MEDS: DILTIAZEM HCL 125 MG in DEXT 5% WATER 100 ML IV PRN (23:30)
[2019-11-09] VITALS (92 sets, daily range): BP systolic 104–168; BP diastolic 64–109
[2019-11-09] MEDS: IPRATROPIUM/ALBUTEROL 0.5-3(2.5)MG/3ML NEB HHN SCH ×6 (00:09→20:25)
[2019-11-09] MEDS: ACETYLCYSTEINE 100MG/ML 10% VIAL 4ML INH SCH ×3 (00:09→16:57)
[2019-11-09] MEDS: PIPERACILLIN/TAZOBACTAM 3.375 G in DEXT 5% WATER 100 ML IV SCH ×4 (03:06→21:26)
[2019-11-09] MEDS: METHYLPREDNISOLONE SOD SUCC 125 MG/2 ML VIAL IV SCH ×4 (03:06→21:26)
[2019-11-09] MEDS: MIDAZOLAM HCL 100 MG in DEXT 5% WATER 80 ML IV PRN (03:07)
[2019-11-09] MEDS: FENTANYL CITRATE/PF 1,000 MCG in SODIUM CHLORIDE 0.9% 80 ML IV PRN (04:09)
[2019-11-09 05:33] LABS: HEMATOCRIT. 38.3 % (42.0-52.0); HEMOGLOBIN. 12.4 g/dL (14.0-18.0); MEAN CORPUSCULAR HEMOGLOBIN 31.8 pg (28.0-32.0); MEAN PLATELET VOLUME 8.8 fl (7.4-10.4); PLATELET 347 x1000/uL (130-400); RED BLOOD CELL COUNT 3.91 mill/uL (4.7-6.1); RED CELL DISTRIBUTION WIDTH 15.1 % (11.6-14.6)
[2019-11-09 05:47] LABS: CHLORIDE 101 mEq/L (98-107)
[2019-11-09] MEDS: BLOOD SUGAR DIAGNOSTIC STRIP TEST SCH ×3 (05:50→18:31)
[2019-11-09] MEDS: SODIUM CHLORIDE 0.9% INJ 3ML FLUSH IVF SCH ×2 (05:50→21:27)
[2019-11-09] MEDS: INSULIN LISPRO 100 UNITS/ML SUBCUT SCH ×3 (05:51→18:31)
[2019-11-09 07:30] LABS: BG BASE EXCESS 1.7 mmol/L (-2.0-2.0); BG CARBOXYHEMOGLOBIN 0.2 % (0.5-1.5); BG DEOXYHEMOGLOBIN 4.7 % (0.0-5.0); BG FRACTION INSPIRED OXYGEN 40; BG HCO3 ACT 26.6 mmol/L (22.0-26.0); BG METHEMOGLOBIN 0.3 % (0.0-1.5); BG OXYGEN SATURATION 95.3 % (92.0-98.5); BG OXYHEMOGLOBIN 94.8 % (94.0-97.0); BG PCO2 43.1 mmHg (35.0-45.0); BG PH 7.409 (7.350-7.450); BG PO2 79.8 mmHg (75.0-100.0); BG SAMPLE SITE RIGHT RADIAL; BG TIDAL VOLUME(mL) 550 mL; BG TOTAL HEMOGLOBIN 13.3 g/dL (12.0-18.0); BG VENT MODE VENT - A/C; BG VENT RATE 16 set
[2019-11-09] MEDS ORDERED: MIDAZOLAM HCL 100 MG in SODIUM CHLORIDE 0.9% 100 ML IV PRN (09:15)
[2019-11-09] MEDS: QUETIAPINE FUMARATE 25MG TABLET PO SCH ×2 (09:15→21:27)
[2019-11-09] MEDS ORDERED: DILTIAZEM HCL 125 MG in SODIUM CHLORIDE 0.9% 100 ML IV PRN (09:15)
[2019-11-09] MEDS: FAMOTIDINE 20MG/2ML VIAL IV SCH ×2 (09:15→21:26)
[2019-11-09] MEDS: DOCUSATE SODIUM SUGAR FREE 100MG/10ML UDC NG SCH (09:15)
[2019-11-09] MEDS: IPRATROPIUM/ALBUTEROL 0.5-3(2.5)MG/3ML NEB HHN PRN (09:39)
[2019-11-09 10:22] LABS: PLATELET ESTIMATE NORMAL
[2019-11-09 10:39] LABS: BG BASE EXCESS 9.2 mmol/L (-2.0-2.0); BG CARBOXYHEMOGLOBIN 0.8 % (0.5-1.5); BG DEOXYHEMOGLOBIN 10.3 % (0.0-5.0); BG FRACTION INSPIRED OXYGEN 40; BG METHEMOGLOBIN 0.3 % (0.0-1.5); BG OXYGEN SATURATION 89.6 % (92.0-98.5); BG OXYHEMOGLOBIN 88.6 % (94.0-97.0); BG PCO2 65.6 mmHg (35.0-45.0); BG PH 7.369 (7.350-7.450); BG PO2 59.5 mmHg (75.0-100.0); BG PRESSURE SUPPORT 8; BG SAMPLE SITE RIGHT RADIAL; BG TOTAL HEMOGLOBIN 13.6 g/dL (12.0-18.0); BG VENT MODE VENT - CPAP
[2019-11-09] MEDS: SODIUM CHLORIDE 0.9% 1,000 ML IV SCH ×2 (10:40→15:33)
[2019-11-09] MEDS: INSULIN GLARGINE UD 100 UNITS/ML SYR SUBCUT SCH ×2 (11:47→21:35)
[2019-11-09] MEDS: ENOXAPARIN 40MG/0.4ML SYR SUBCUT SCH (15:34)
[2019-11-09] MEDS: MONTELUKAST SODIUM 10MG TABLET PO SCH (18:28)
[2019-11-09] MEDS: LORAZEPAM 2MG/ML CPJ IV PRN (21:27)
[2019-11-10] VITALS (77 sets, daily range): BP systolic 111–186; BP diastolic 71–110
[2019-11-10] MEDS: BLOOD SUGAR DIAGNOSTIC STRIP TEST SCH ×4 (00:30→18:12)
[2019-11-10] MEDS: INSULIN LISPRO 100 UNITS/ML SUBCUT SCH ×4 (00:33→18:12)
[2019-11-10] MEDS: ACETYLCYSTEINE 100MG/ML 10% VIAL 4ML INH SCH ×3 (00:44→15:21)
[2019-11-10] MEDS: IPRATROPIUM/ALBUTEROL 0.5-3(2.5)MG/3ML NEB HHN SCH ×7 (00:45→20:25)
[2019-11-10] MEDS: METHYLPREDNISOLONE SOD SUCC 125 MG/2 ML VIAL IV SCH ×4 (03:34→21:05)
[2019-11-10] MEDS: SODIUM CHLORIDE 0.9% 1,000 ML IV SCH ×2 (03:35→20:03)
[2019-11-10] MEDS: PIPERACILLIN/TAZOBACTAM 3.375 G in DEXT 5% WATER 100 ML IV SCH ×4 (03:35→21:05)
[2019-11-10] MEDS: HYDRALAZINE 20MG/ML VIAL IV PRN ×2 (03:55→16:42)
[2019-11-10] MEDS: LORAZEPAM 2MG/ML CPJ IV PRN ×2 (04:18→16:55)
[2019-11-10] MEDS: DILTIAZEM HCL 125 MG in SODIUM CHLORIDE 0.9% 100 ML IV PRN ×3 (04:33→21:07)
[2019-11-10] MEDS: SODIUM CHLORIDE 0.9% INJ 3ML FLUSH IVF SCH ×3 (05:19→21:05)
[2019-11-10 06:29] LABS: HEMATOCRIT. 41.2 % (42.0-52.0); HEMOGLOBIN. 13.3 g/dL (14.0-18.0); MEAN CORPUSCULAR HEMOGLOBIN 31.7 pg (28.0-32.0); MEAN CORPUSCULAR VOLUME 98.3 fL (80.0-94.0); MEAN PLATELET VOLUME 9.2 fl (7.4-10.4); PLATELET 405 x1000/uL (130-400); RED CELL DISTRIBUTION WIDTH 15.2 % (11.6-14.6)
[2019-11-10 06:35] LABS: CHLORIDE 104 mEq/L (98-107)
[2019-11-10 07:17] LABS: PLATELET ESTIMATE SLIGHTLY INCREASED
[2019-11-10] MEDS: FAMOTIDINE 20MG/2ML VIAL IV SCH ×2 (09:10→21:05)
[2019-11-10] MEDS: QUETIAPINE FUMARATE 25MG TABLET PO SCH (09:10)
[2019-11-10] MEDS: DOCUSATE SODIUM SUGAR FREE 100MG/10ML UDC NG SCH (09:11)
[2019-11-10 10:00] LABS: BG BASE EXCESS 5.6 mmol/L (-2.0-2.0); BG CARBOXYHEMOGLOBIN 0.6 % (0.5-1.5); BG DEOXYHEMOGLOBIN 5.2 % (0.0-5.0); BG FRACTION INSPIRED OXYGEN 40; BG HCO3 ACT 29.3 mmol/L (22.0-26.0); BG METHEMOGLOBIN 0.3 % (0.0-1.5); BG OXYGEN SATURATION 94.8 % (92.0-98.5); BG OXYHEMOGLOBIN 93.9 % (94.0-97.0); BG PCO2 39.5 mmHg (35.0-45.0); BG PH 7.488 (7.350-7.450); BG SAMPLE SITE RIGHT RADIAL; BG TIDAL VOLUME(mL) 550 mL; BG TOTAL HEMOGLOBIN 14.1 g/dL (12.0-18.0); BG VENT MODE VENT - A/C; BG VENT RATE 12 set
[2019-11-10] MEDS ORDERED: MORPHINE SULFATE 2 MG/ML CPJ (NOT FOR IM USE) IV PRN (10:30)
[2019-11-10] MEDS: INSULIN GLARGINE UD 100 UNITS/ML SYR SUBCUT SCH ×2 (10:53→21:06)
[2019-11-10] MEDS: ENOXAPARIN 40MG/0.4ML SYR SUBCUT SCH (15:34)
[2019-11-10] MEDS: MONTELUKAST SODIUM 10MG TABLET PO SCH (16:42)
[2019-11-10] MEDS: ACETAMINOPHEN 325MG TABLET PO PRN (18:18)
[2019-11-11] VITALS (92 sets, daily range): BP systolic 126–172; BP diastolic 73–115
[2019-11-11] MEDS: INSULIN LISPRO 100 UNITS/ML SUBCUT SCH ×5 (00:02→23:35)
[2019-11-11] MEDS: BLOOD SUGAR DIAGNOSTIC STRIP TEST SCH ×5 (00:03→23:34)
[2019-11-11] MEDS: ACETYLCYSTEINE 100MG/ML 10% VIAL 4ML INH SCH ×3 (00:50→15:53)
[2019-11-11] MEDS: IPRATROPIUM/ALBUTEROL 0.5-3(2.5)MG/3ML NEB HHN SCH ×6 (00:50→19:52)
[2019-11-11] MEDS: METHYLPREDNISOLONE SOD SUCC 125 MG/2 ML VIAL IV SCH ×2 (03:32→10:10)
[2019-11-11] MEDS: PIPERACILLIN/TAZOBACTAM 3.375 G in DEXT 5% WATER 100 ML IV SCH ×2 (03:32→08:45)
[2019-11-11] MEDS: SODIUM CHLORIDE 0.9% INJ 3ML FLUSH IVF SCH ×3 (05:26→21:07)
[2019-11-11] MEDS: HYDRALAZINE 20MG/ML VIAL IV PRN (05:34)
[2019-11-11 05:37] LABS: CHLORIDE 110 mEq/L (98-107)
[2019-11-11 05:39] LABS: HEMATOCRIT. 41.1 % (42.0-52.0); HEMOGLOBIN. 13.5 g/dL (14.0-18.0); MEAN CORPUSCULAR HEMOGLOBIN 32.1 pg (28.0-32.0); MEAN PLATELET VOLUME 9.4 fl (7.4-10.4); PLATELET 418 x1000/uL (130-400); RED BLOOD CELL COUNT 4.19 mill/uL (4.7-6.1); RED CELL DISTRIBUTION WIDTH 15.8 % (11.6-14.6)
[2019-11-11] MEDS: DILTIAZEM HCL 125 MG in SODIUM CHLORIDE 0.9% 100 ML IV PRN (06:22)
[2019-11-11 07:24] LABS: PLATELET ESTIMATE SLIGHTLY INCREASED
[2019-11-11 08:32] LABS: BG BASE EXCESS 3.7 mmol/L (-2.0-2.0); BG DEOXYHEMOGLOBIN 6.5 % (0.0-5.0); BG FRACTION INSPIRED OXYGEN 40; BG HCO3 ACT 27.1 mmol/L (22.0-26.0); BG METHEMOGLOBIN 0.1 % (0.0-1.5); BG OXYGEN SATURATION 93.4 % (92.0-98.5); BG OXYHEMOGLOBIN 92.4 % (94.0-97.0); BG PCO2 37.1 mmHg (35.0-45.0); BG PH 7.481 (7.350-7.450); BG PO2 68.8 mmHg (75.0-100.0); BG SAMPLE SITE RIGHT RADIAL; BG TIDAL VOLUME(mL) 550 mL; BG TOTAL HEMOGLOBIN 15.9 g/dL (12.0-18.0); BG VENT MODE VENT - A/C; BG VENT RATE 12 set
[2019-11-11] MEDS: FAMOTIDINE 20MG/2ML VIAL IV SCH ×2 (08:45→20:41)
[2019-11-11] MEDS: DOCUSATE SODIUM SUGAR FREE 100MG/10ML UDC NG SCH (08:45)
[2019-11-11] MEDS: ACETAMINOPHEN 325MG TABLET PO PRN (08:45)
[2019-11-11] MEDS: INSULIN GLARGINE UD 100 UNITS/ML SYR SUBCUT SCH ×2 (10:11→22:05)
[2019-11-11 11:47] LABS: CLARITY URINE CLEAR (CLEAR); COLOR URINE YELLOW (YELLOW); KETONES URINE NEGATIVE (NEGATIVE); LEUKOCYTE ESTERASE URINE NEGATIVE (NEGATIVE); NITRITE URINE NEGATIVE (NEGATIVE); OCCULT BLOOD URINE 3+ (NEGATIVE); PROTEIN URINE 1+ (NEGATIVE); SPECIFIC GRAVITY URINE 1.027 (1.005-1.030)
[2019-11-11] MEDS: MEROPENEM 1,000 MG in SODIUM CHLORIDE 0.9% 100 ML IV SCH ×2 (12:49→20:40)
[2019-11-11] MEDS: METHYLPREDNISOLONE SOD SUCC 40 MG/ML VIAL IV SCH ×2 (14:32→22:05)
[2019-11-11] MEDS: ENOXAPARIN 40MG/0.4ML SYR SUBCUT SCH (14:32)
[2019-11-11] MEDS: SODIUM CHLORIDE 0.9% 1,000 ML IV SCH (15:07)
[2019-11-11] MEDS: MONTELUKAST SODIUM 10MG TABLET PO SCH (16:05)
[2019-11-11] MEDS: LAMOTRIGINE 100MG TABLET PO SCH (21:07)
[2019-11-12] VITALS (95 sets, daily range): BP systolic 99–172; BP diastolic 57–106
[2019-11-12] MEDS: ACETYLCYSTEINE 100MG/ML 10% VIAL 4ML INH SCH ×3 (00:12→16:49)
[2019-11-12] MEDS: IPRATROPIUM/ALBUTEROL 0.5-3(2.5)MG/3ML NEB HHN SCH ×6 (00:12→20:24)
[2019-11-12] MEDS: LORAZEPAM 2MG/ML CPJ IV PRN (00:27)
[2019-11-12] MEDS: HYDRALAZINE 20MG/ML VIAL IV PRN (00:28)
[2019-11-12] MEDS: SODIUM CHLORIDE 0.9% 1,000 ML IV SCH (01:26)
[2019-11-12] MEDS: MEROPENEM 1,000 MG in SODIUM CHLORIDE 0.9% 100 ML IV SCH ×3 (03:20→20:21)
[2019-11-12] MEDS: SODIUM CHLORIDE 0.9% INJ 3ML FLUSH IVF SCH ×3 (05:23→21:25)
[2019-11-12] MEDS: METHYLPREDNISOLONE SOD SUCC 40 MG/ML VIAL IV SCH ×3 (05:48→21:25)
[2019-11-12] MEDS: INSULIN LISPRO 100 UNITS/ML SUBCUT SCH ×4 (05:48→23:20)
[2019-11-12] MEDS: BLOOD SUGAR DIAGNOSTIC STRIP TEST SCH ×4 (05:48→23:20)
[2019-11-12 05:54] LABS: HEMATOCRIT. 41.6 % (42.0-52.0); HEMOGLOBIN. 13.2 g/dL (14.0-18.0); MEAN CORPUSCULAR HEMOGLOBIN 31.5 pg (28.0-32.0); MEAN CORPUSCULAR VOLUME 99.7 fL (80.0-94.0); MEAN PLATELET VOLUME 9.5 fl (7.4-10.4); PLATELET 400 x1000/uL (130-400); RED BLOOD CELL COUNT 4.18 mill/uL (4.7-6.1)
[2019-11-12 06:03] LABS: CHLORIDE 118 mEq/L (98-107)
[2019-11-12] MEDS: FAMOTIDINE 20MG/2ML VIAL IV SCH ×2 (08:07→20:21)
[2019-11-12] MEDS: LAMOTRIGINE 100MG TABLET PO SCH ×2 (08:07→20:21)
[2019-11-12] MEDS: DOCUSATE SODIUM SUGAR FREE 100MG/10ML UDC NG SCH (08:07)
[2019-11-12] MEDS: INSULIN GLARGINE UD 100 UNITS/ML SYR SUBCUT SCH ×2 (09:29→21:26)
[2019-11-12 09:47] LABS: PLATELET ESTIMATE NORMAL
[2019-11-12] MEDS: ENOXAPARIN 40MG/0.4ML SYR SUBCUT SCH (14:54)
[2019-11-12] MEDS: MONTELUKAST SODIUM 10MG TABLET PO SCH (17:25)
[2019-11-13] VITALS (87 sets, daily range): BP systolic 104–168; BP diastolic 60–110
[2019-11-13] MEDS: IPRATROPIUM/ALBUTEROL 0.5-3(2.5)MG/3ML NEB HHN SCH ×6 (00:30→23:52)
[2019-11-13] MEDS: MEROPENEM 1,000 MG in SODIUM CHLORIDE 0.9% 100 ML IV SCH ×3 (03:44→20:06)
[2019-11-13 05:19] LABS: HEMATOCRIT. 41.3 % (42.0-52.0); MEAN CORPUSCULAR HEMOGLOBIN 31.6 pg (28.0-32.0); MEAN CORPUSCULAR VOLUME 100.1 fL (80.0-94.0); MEAN PLATELET VOLUME 9.7 fl (7.4-10.4); PLATELET 366 x1000/uL (130-400); RED BLOOD CELL COUNT 4.12 mill/uL (4.7-6.1); RED CELL DISTRIBUTION WIDTH 15.9 % (11.6-14.6)
[2019-11-13 05:21] LABS: CHLORIDE 119 mEq/L (98-107)
[2019-11-13] MEDS: SODIUM CHLORIDE 0.9% INJ 3ML FLUSH IVF SCH ×3 (05:45→21:16)
[2019-11-13] MEDS: BLOOD SUGAR DIAGNOSTIC STRIP TEST SCH ×4 (05:45→23:31)
[2019-11-13] MEDS: METHYLPREDNISOLONE SOD SUCC 40 MG/ML VIAL IV SCH ×2 (05:52→17:25)
[2019-11-13] MEDS: INSULIN LISPRO 100 UNITS/ML SUBCUT SCH ×4 (05:53→23:32)
[2019-11-13 07:08] LABS: PLATELET ESTIMATE NORMAL
[2019-11-13] MEDS: DOCUSATE SODIUM SUGAR FREE 100MG/10ML UDC NG SCH (09:13)
[2019-11-13] MEDS: LAMOTRIGINE 100MG TABLET PO SCH ×2 (09:26→20:06)
[2019-11-13] MEDS: FAMOTIDINE 20MG/2ML VIAL IV SCH ×2 (09:26→20:06)
[2019-11-13] MEDS: DEXTROSE 5% WATER 1,000 ML IV SCH (09:31)
[2019-11-13] MEDS: INSULIN GLARGINE UD 100 UNITS/ML SYR SUBCUT SCH ×2 (10:49→21:16)
[2019-11-13] MEDS ORDERED: MORPHINE SULFATE 2 MG/ML CPJ (NOT FOR IM USE) IV PRN (11:15)
[2019-11-13] MEDS ORDERED: LORAZEPAM 2MG/ML CPJ IV PRN (11:15)
[2019-11-13] MEDS: ENOXAPARIN 40MG/0.4ML SYR SUBCUT SCH (15:59)
[2019-11-13] MEDS: MONTELUKAST SODIUM 10MG TABLET PO SCH (16:29)
[2019-11-14] VITALS (64 sets, daily range): BP systolic 89–137; BP diastolic 52–86
[2019-11-14] MEDS: IPRATROPIUM/ALBUTEROL 0.5-3(2.5)MG/3ML NEB HHN SCH ×5 (03:38→20:28)
[2019-11-14] MEDS: DEXTROSE 5% WATER 1,000 ML IV SCH ×2 (03:56→23:30)
[2019-11-14] MEDS: MEROPENEM 1,000 MG in SODIUM CHLORIDE 0.9% 100 ML IV SCH ×3 (03:56→20:55)
[2019-11-14] MEDS: SODIUM CHLORIDE 0.9% INJ 3ML FLUSH IVF SCH ×3 (05:52→21:22)
[2019-11-14] MEDS: BLOOD SUGAR DIAGNOSTIC STRIP TEST SCH ×4 (05:52→23:30)
[2019-11-14] MEDS: INSULIN LISPRO 100 UNITS/ML SUBCUT SCH ×4 (05:52→23:29)
[2019-11-14] MEDS: METHYLPREDNISOLONE SOD SUCC 40 MG/ML VIAL IV SCH ×2 (05:52→17:30)
[2019-11-14 07:11] LABS: HEMATOCRIT. 41.6 % (42.0-52.0); HEMOGLOBIN. 13.4 g/dL (14.0-18.0); MEAN CORPUSCULAR HEMOGLOBIN 31.8 pg (28.0-32.0); MEAN CORPUSCULAR VOLUME 98.8 fL (80.0-94.0); MEAN PLATELET VOLUME 10.1 fl (7.4-10.4); PLATELET 316 x1000/uL (130-400); RED BLOOD CELL COUNT 4.21 mill/uL (4.7-6.1); RED CELL DISTRIBUTION WIDTH 15.4 % (11.6-14.6)
[2019-11-14 07:35] LABS: CHLORIDE 115 mEq/L (98-107)
[2019-11-14] MEDS: LAMOTRIGINE 100MG TABLET PO SCH ×2 (08:59→20:55)
[2019-11-14] MEDS: FAMOTIDINE 20MG/2ML VIAL IV SCH ×2 (08:59→20:55)
[2019-11-14] MEDS: DOCUSATE SODIUM SUGAR FREE 100MG/10ML UDC NG SCH (09:00)
[2019-11-14] MEDS: INSULIN GLARGINE UD 100 UNITS/ML SYR SUBCUT SCH ×2 (09:01→21:22)
[2019-11-14 09:49] LABS: PLATELET ESTIMATE NORMAL
[2019-11-14] MEDS ORDERED: SODIUM POLYSTYRENE SULFONATE 15 G/60 ML BOT PO NR (10:30)
[2019-11-14] MEDS: ENOXAPARIN 40MG/0.4ML SYR SUBCUT SCH (17:30)
[2019-11-14] MEDS: MONTELUKAST SODIUM 10MG TABLET PO SCH (17:30)
[2019-11-15] VITALS (31 sets, daily range): BP systolic 86–122; BP diastolic 54–79
[2019-11-15] MEDS: IPRATROPIUM/ALBUTEROL 0.5-3(2.5)MG/3ML NEB HHN SCH ×6 (00:32→20:13)
[2019-11-15] MEDS: MEROPENEM 1,000 MG in SODIUM CHLORIDE 0.9% 100 ML IV SCH ×3 (04:04→19:18)
[2019-11-15] MEDS: METHYLPREDNISOLONE SOD SUCC 40 MG/ML VIAL IV SCH ×2 (05:11→18:01)
[2019-11-15] MEDS: SODIUM CHLORIDE 0.9% INJ 3ML FLUSH IVF SCH ×3 (05:12→21:16)
[2019-11-15] MEDS: BLOOD SUGAR DIAGNOSTIC STRIP TEST SCH ×4 (05:12→23:20)
[2019-11-15] MEDS: INSULIN LISPRO 100 UNITS/ML SUBCUT SCH ×4 (05:13→23:20)
[2019-11-15 05:14] LABS: HEMATOCRIT. 33.5 % (42.0-52.0); MEAN CORPUSCULAR VOLUME 97.9 fL (80.0-94.0); PLATELET 287 x1000/uL (130-400); RED BLOOD CELL COUNT 3.42 mill/uL (4.7-6.1); RED CELL DISTRIBUTION WIDTH 15.2 % (11.6-14.6)
[2019-11-15 05:15] LABS: CHLORIDE 106 mEq/L (98-107)
[2019-11-15 09:01] LABS: PLATELET ESTIMATE NORMAL
[2019-11-15] MEDS: INSULIN GLARGINE UD 100 UNITS/ML SYR SUBCUT SCH ×2 (09:44→21:16)
[2019-11-15] MEDS: DOCUSATE SODIUM SUGAR FREE 100MG/10ML UDC NG SCH (09:45)
[2019-11-15] MEDS: LAMOTRIGINE 100MG TABLET PO SCH ×2 (09:45→21:16)
[2019-11-15] MEDS: FAMOTIDINE 20MG/2ML VIAL IV SCH ×2 (09:45→21:16)
[2019-11-15] MEDS: ENOXAPARIN 40MG/0.4ML SYR SUBCUT SCH (14:32)
[2019-11-15] MEDS: MONTELUKAST SODIUM 10MG TABLET PO SCH (18:01)
[2019-11-16] VITALS (24 sets, daily range): BP systolic 91–137; BP diastolic 61–76
[2019-11-16] MEDS: DEXTROSE 5% WATER 1,000 ML IV SCH (00:08)
[2019-11-16] MEDS: IPRATROPIUM/ALBUTEROL 0.5-3(2.5)MG/3ML NEB HHN SCH ×5 (00:28→21:16)
[2019-11-16] MEDS: MEROPENEM 1,000 MG in SODIUM CHLORIDE 0.9% 100 ML IV SCH ×3 (04:21→19:47)
[2019-11-16] MEDS: SODIUM CHLORIDE 0.9% INJ 3ML FLUSH IVF SCH ×3 (05:45→21:11)
[2019-11-16] MEDS: BLOOD SUGAR DIAGNOSTIC STRIP TEST SCH ×4 (05:45→23:47)
[2019-11-16] MEDS: INSULIN LISPRO 100 UNITS/ML SUBCUT SCH ×4 (05:45→23:47)
[2019-11-16] MEDS: METHYLPREDNISOLONE SOD SUCC 40 MG/ML VIAL IV SCH (05:45)
[2019-11-16 06:28] LABS: BASOPHILS % 0.2 % (0.0-2.0); EOSINOPHILS % 0.1 % (0.0-5.0); HEMATOCRIT. 32.7 % (42.0-52.0); HEMOGLOBIN. 10.7 g/dL (14.0-18.0); LYMPHOCYTES % 7.6 % (20.0-50.0); MEAN CORPUSCULAR HEMOGLOBIN 31.7 pg (28.0-32.0); MEAN CORPUSCULAR VOLUME 96.6 fL (80.0-94.0); MONOCYTES % 2.8 % (2.0-8.0); NEUTROPHILS % 89.3 % (40.0-76.0); PLATELET 284 x1000/uL (130-400); RED BLOOD CELL COUNT 3.39 mill/uL (4.7-6.1); RED CELL DISTRIBUTION WIDTH 15.5 % (11.6-14.6)
[2019-11-16 06:54] LABS: CHLORIDE 101 mEq/L (98-107)
[2019-11-16] MEDS: FAMOTIDINE 20MG/2ML VIAL IV SCH ×2 (08:07→20:52)
[2019-11-16] MEDS: LAMOTRIGINE 100MG TABLET PO SCH ×2 (08:08→20:52)
[2019-11-16] MEDS: DOCUSATE SODIUM SUGAR FREE 100MG/10ML UDC NG SCH (08:08)
[2019-11-16] MEDS: INSULIN GLARGINE UD 100 UNITS/ML SYR SUBCUT SCH ×2 (09:58→21:13)
[2019-11-16 12:55] LABS: BG BASE EXCESS 7.4 mmol/L (-2.0-2.0); BG CARBOXYHEMOGLOBIN 0.3 % (0.5-1.5); BG DEOXYHEMOGLOBIN 3.8 % (0.0-5.0); BG FRACTION INSPIRED OXYGEN 40; BG HCO3 ACT 32.5 mmol/L (22.0-26.0); BG METHEMOGLOBIN 0.1 % (0.0-1.5); BG OXYGEN SATURATION 96.2 % (92.0-98.5); BG OXYHEMOGLOBIN 95.8 % (94.0-97.0); BG PCO2 47.9 mmHg (35.0-45.0); BG PH 7.449 (7.350-7.450); BG PO2 82.8 mmHg (75.0-100.0); BG PRESSURE SUPPORT 8; BG SAMPLE SITE RIGHT RADIAL; BG VENT MODE VENT - CPAP
[2019-11-16] MEDS: ENOXAPARIN 40MG/0.4ML SYR SUBCUT SCH (16:12)
[2019-11-16] MEDS: MONTELUKAST SODIUM 10MG TABLET PO SCH (16:12)
[2019-11-17] VITALS (24 sets, daily range): BP systolic 92–118; BP diastolic 55–76
[2019-11-17] MEDS: IPRATROPIUM/ALBUTEROL 0.5-3(2.5)MG/3ML NEB HHN SCH ×6 (01:20→20:19)
[2019-11-17] MEDS: MEROPENEM 1,000 MG in SODIUM CHLORIDE 0.9% 100 ML IV SCH ×3 (03:04→19:33)
[2019-11-17] MEDS: INSULIN LISPRO 100 UNITS/ML SUBCUT SCH ×4 (06:00→23:51)
[2019-11-17 06:07] LABS: BASOPHILS % 0.1 % (0.0-2.0); EOSINOPHILS % 0.3 % (0.0-5.0); HEMATOCRIT. 32.6 % (42.0-52.0); HEMOGLOBIN. 10.9 g/dL (14.0-18.0); LYMPHOCYTES % 8.3 % (20.0-50.0); MEAN CORPUSCULAR HEMOGLOBIN 31.9 pg (28.0-32.0); MEAN CORPUSCULAR VOLUME 95.3 fL (80.0-94.0); MEAN PLATELET VOLUME 9.3 fl (7.4-10.4); MONOCYTES % 3.5 % (2.0-8.0); NEUTROPHILS % 87.8 % (40.0-76.0); PLATELET 292 x1000/uL (130-400); RED BLOOD CELL COUNT 3.43 mill/uL (4.7-6.1); RED CELL DISTRIBUTION WIDTH 15.1 % (11.6-14.6)
[2019-11-17] MEDS: SODIUM CHLORIDE 0.9% INJ 3ML FLUSH IVF SCH ×3 (06:07→21:09)
[2019-11-17] MEDS: BLOOD SUGAR DIAGNOSTIC STRIP TEST SCH ×4 (06:07→23:51)
[2019-11-17 06:29] LABS: CHLORIDE 101 mEq/L (98-107)
[2019-11-17] MEDS: DOCUSATE SODIUM SUGAR FREE 100MG/10ML UDC NG SCH (07:44)
[2019-11-17] MEDS: METHYLPREDNISOLONE SOD SUCC 40 MG/ML VIAL IV SCH (07:45)
[2019-11-17] MEDS: LAMOTRIGINE 100MG TABLET PO SCH ×2 (07:45→20:25)
[2019-11-17] MEDS: FAMOTIDINE 20MG/2ML VIAL IV SCH ×2 (07:45→20:25)
[2019-11-17] MEDS: INSULIN GLARGINE UD 100 UNITS/ML SYR SUBCUT SCH ×2 (09:48→21:22)
[2019-11-17] MEDS: ENOXAPARIN 40MG/0.4ML SYR SUBCUT SCH (14:52)
[2019-11-17] MEDS: MONTELUKAST SODIUM 10MG TABLET PO SCH (17:36)
[2019-11-18] VITALS (25 sets, daily range): BP systolic 86–135; BP diastolic 49–79
[2019-11-18] MEDS: IPRATROPIUM/ALBUTEROL 0.5-3(2.5)MG/3ML NEB HHN SCH ×6 (00:32→20:24)
[2019-11-18] MEDS: MEROPENEM 1,000 MG in SODIUM CHLORIDE 0.9% 100 ML IV SCH ×3 (03:38→20:15)
[2019-11-18] MEDS: INSULIN LISPRO 100 UNITS/ML SUBCUT SCH ×3 (05:26→18:14)
[2019-11-18] MEDS: BLOOD SUGAR DIAGNOSTIC STRIP TEST SCH ×4 (05:26→23:36)
[2019-11-18] MEDS: SODIUM CHLORIDE 0.9% INJ 3ML FLUSH IVF SCH ×3 (05:27→21:47)
[2019-11-18] MEDS: LAMOTRIGINE 100MG TABLET PO SCH ×2 (08:22→21:30)
[2019-11-18] MEDS: METHYLPREDNISOLONE SOD SUCC 40 MG/ML VIAL IV SCH (08:22)
[2019-11-18] MEDS: DOCUSATE SODIUM SUGAR FREE 100MG/10ML UDC NG SCH (08:22)
[2019-11-18] MEDS: FAMOTIDINE 20MG/2ML VIAL IV SCH ×2 (08:22→21:30)
[2019-11-18 09:59] LABS: BASOPHILS % 0.2 % (0.0-2.0); EOSINOPHILS % 0.2 % (0.0-5.0); HEMATOCRIT. 30.9 % (42.0-52.0); HEMOGLOBIN. 10.3 g/dL (14.0-18.0); LYMPHOCYTES % 8.4 % (20.0-50.0); MEAN CORPUSCULAR HEMOGLOBIN 31.7 pg (28.0-32.0); MEAN CORPUSCULAR VOLUME 94.9 fL (80.0-94.0); MEAN PLATELET VOLUME 8.7 fl (7.4-10.4); MONOCYTES % 5.5 % (2.0-8.0); NEUTROPHILS % 85.7 % (40.0-76.0); PLATELET 316 x1000/uL (130-400); RED BLOOD CELL COUNT 3.25 mill/uL (4.7-6.1); RED CELL DISTRIBUTION WIDTH 14.6 % (11.6-14.6)
[2019-11-18] MEDS: INSULIN GLARGINE UD 100 UNITS/ML SYR SUBCUT SCH ×2 (10:09→21:30)
[2019-11-18 10:10] LABS: CHLORIDE 99 mEq/L (98-107)
[2019-11-18] MEDS: ENOXAPARIN 40MG/0.4ML SYR SUBCUT SCH (14:54)
[2019-11-18] MEDS: MONTELUKAST SODIUM 10MG TABLET PO SCH (17:15)
[2019-11-19] VITALS (24 sets, daily range): BP systolic 89–127; BP diastolic 45–80
[2019-11-19] MEDS: INSULIN LISPRO 100 UNITS/ML SUBCUT SCH ×5 (00:04→23:36)
[2019-11-19] MEDS: IPRATROPIUM/ALBUTEROL 0.5-3(2.5)MG/3ML NEB HHN SCH ×7 (00:19→23:57)
[2019-11-19 05:32] LABS: HEMATOCRIT 30.1 % (42.0-52.0); HEMOGLOBIN 10.2 g/dL (14.0-18.0); MEAN CORPUSCULAR HEMOGLOBIN 32.3 pg (28.0-32.0); PLATELET 325 x1000/uL (130-400); RED BLOOD CELL COUNT 3.16 mill/uL (4.7-6.1)
[2019-11-19 05:40] LABS: CHLORIDE 100 mEq/L (98-107)
[2019-11-19] MEDS: SODIUM CHLORIDE 0.9% INJ 3ML FLUSH IVF SCH ×3 (05:57→21:17)
[2019-11-19] MEDS: BLOOD SUGAR DIAGNOSTIC STRIP TEST SCH ×4 (05:57→23:36)
[2019-11-19] MEDS: FAMOTIDINE 20MG/2ML VIAL IV SCH ×2 (08:15→21:16)
[2019-11-19] MEDS: DOCUSATE SODIUM SUGAR FREE 100MG/10ML UDC NG SCH (08:15)
[2019-11-19] MEDS: LAMOTRIGINE 100MG TABLET PO SCH ×2 (08:16→21:16)
[2019-11-19] MEDS: METHYLPREDNISOLONE SOD SUCC 40 MG/ML VIAL IV SCH (08:16)
[2019-11-19] MEDS: INSULIN GLARGINE UD 100 UNITS/ML SYR SUBCUT SCH ×2 (12:08→21:17)
[2019-11-19] MEDS: MONTELUKAST SODIUM 10MG TABLET PO SCH (16:48)
[2019-11-19] MEDS: ENOXAPARIN 40MG/0.4ML SYR SUBCUT SCH (16:49)
[2019-11-20] VITALS (24 sets, daily range): BP systolic 95–151; BP diastolic 52–84
[2019-11-20] MEDS: IPRATROPIUM/ALBUTEROL 0.5-3(2.5)MG/3ML NEB HHN SCH ×5 (04:03→20:43)
[2019-11-20] MEDS: INSULIN LISPRO 100 UNITS/ML SUBCUT SCH ×4 (06:00→23:30)
[2019-11-20 06:02] LABS: INR 0.9; PROTHROMBIN TIME 10.2 sec (9.6-11.0)
[2019-11-20 06:07] LABS: BASOPHILS % 0.2 % (0.0-2.0); CHLORIDE 99 mEq/L (98-107); EOSINOPHILS % 0.4 % (0.0-5.0); HEMATOCRIT. 30.3 % (42.0-52.0); LYMPHOCYTES % 12.9 % (20.0-50.0); MEAN CORPUSCULAR HEMOGLOBIN 31.6 pg (28.0-32.0); MEAN CORPUSCULAR VOLUME 95.6 fL (80.0-94.0); MEAN PLATELET VOLUME 7.9 fl (7.4-10.4); MONOCYTES % 5.7 % (2.0-8.0); NEUTROPHILS % 80.8 % (40.0-76.0); PLATELET 374 x1000/uL (130-400); RED BLOOD CELL COUNT 3.17 mill/uL (4.7-6.1)
[2019-11-20] MEDS: BLOOD SUGAR DIAGNOSTIC STRIP TEST SCH ×4 (06:33→23:22)
[2019-11-20] MEDS: DEXTROSE 50% WATER 50ML SYRINGE IV PRN (06:35)
[2019-11-20] MEDS: SODIUM CHLORIDE 0.9% INJ 3ML FLUSH IVF SCH ×3 (06:36→21:44)
[2019-11-20] MEDS: METHYLPREDNISOLONE SOD SUCC 40 MG/ML VIAL IV SCH (08:22)
[2019-11-20] MEDS: FAMOTIDINE 20MG/2ML VIAL IV SCH ×2 (08:22→21:43)
[2019-11-20] MEDS ORDERED: DEXT 5%/0.45% NACL 1000ML 1,000 ML IV SCH (09:00)
[2019-11-20] MEDS ORDERED: LIDOCAINE HCL/EPINEPHRINE 1%-EPI 1:100,000 20 ML VIAL ONE (09:32)
[2019-11-20] MEDS ORDERED: AMIODARONE HCL 50MG/ML 3ML VIAL IV ONE (10:00)
[2019-11-20] MEDS ORDERED: POTASSIUM CHLORIDE 20MEQ/PACKET PO ONE (10:00)
[2019-11-20] MEDS: INSULIN GLARGINE UD 100 UNITS/ML SYR SUBCUT SCH ×2 (10:00→21:44)
[2019-11-20] MEDS ORDERED: AMIODARONE HCL 50MG/ML 9ML VIAL IV ONE (10:00)
[2019-11-20] MEDS ORDERED: ROCURONIUM BROMIDE 10MG/ML VIAL 5ML IV ONE (11:22)
[2019-11-20] MEDS ORDERED: FENTANYL CITRATE/PF 50MCG/ML 2ML VIAL ONE (11:53)
[2019-11-20] MEDS ORDERED: ONDANSETRON HCL 4MG/2ML INJ ONE (12:05)
[2019-11-20] MEDS ORDERED: GLYCOPYRROLATE 0.2 MG/ML 2ML VIAL ONE (12:06)
[2019-11-20] MEDS: DOCUSATE SODIUM SUGAR FREE 100MG/10ML UDC NG SCH (13:16)
[2019-11-20] MEDS: LAMOTRIGINE 100MG TABLET PO SCH ×2 (13:16→21:44)
[2019-11-20] MEDS: ENOXAPARIN 40MG/0.4ML SYR SUBCUT SCH (15:02)
[2019-11-20] MEDS: MONTELUKAST SODIUM 10MG TABLET PO SCH (17:43)
[2019-11-21] VITALS (24 sets, daily range): BP systolic 99–141; BP diastolic 47–86
[2019-11-21] MEDS: IPRATROPIUM/ALBUTEROL 0.5-3(2.5)MG/3ML NEB HHN SCH ×6 (00:34→20:31)
[2019-11-21] MEDS: BLOOD SUGAR DIAGNOSTIC STRIP TEST SCH ×3 (05:52→18:00)
[2019-11-21] MEDS: INSULIN LISPRO 100 UNITS/ML SUBCUT SCH ×3 (05:52→18:27)
[2019-11-21] MEDS: SODIUM CHLORIDE 0.9% INJ 3ML FLUSH IVF SCH ×3 (05:52→21:01)
[2019-11-21 05:57] LABS: CHLORIDE 97 mEq/L (98-107)
[2019-11-21 06:02] LABS: HEMATOCRIT. 29.2 % (42.0-52.0); HEMOGLOBIN. 9.7 g/dL (14.0-18.0); MEAN CORPUSCULAR HEMOGLOBIN 31.8 pg (28.0-32.0); MEAN CORPUSCULAR VOLUME 95.8 fL (80.0-94.0); MEAN PLATELET VOLUME 7.7 fl (7.4-10.4); PLATELET 402 x1000/uL (130-400); RED BLOOD CELL COUNT 3.05 mill/uL (4.7-6.1); RED CELL DISTRIBUTION WIDTH 15.2 % (11.6-14.6)
[2019-11-21 08:36] LABS: PLATELET ESTIMATE NORMAL
[2019-11-21] MEDS: DOCUSATE SODIUM SUGAR FREE 100MG/10ML UDC NG SCH (09:17)
[2019-11-21] MEDS: LAMOTRIGINE 100MG TABLET PO SCH ×2 (09:17→21:01)
[2019-11-21] MEDS: FAMOTIDINE 20MG/2ML VIAL IV SCH ×2 (09:17→21:01)
[2019-11-21] MEDS: INSULIN GLARGINE UD 100 UNITS/ML SYR SUBCUT SCH ×2 (09:18→21:04)
[2019-11-21 10:06] LABS: BG BASE EXCESS 3.6 mmol/L (-2.0-2.0); BG CARBOXYHEMOGLOBIN 0.2 % (0.5-1.5); BG DEOXYHEMOGLOBIN 2.6 % (0.0-5.0); BG METHEMOGLOBIN 0.2 % (0.0-1.5); BG OXYGEN SATURATION 97.4 % (92.0-98.5); BG PCO2 36.3 mmHg (35.0-45.0); BG PH 7.489 (7.350-7.450); BG PO2 105.5 mmHg (75.0-100.0); BG SAMPLE SITE RIGHT RADIAL; BG TIDAL VOLUME(mL) 550 mL; BG TOTAL HEMOGLOBIN 10.6 g/dL (12.0-18.0); BG VENT MODE VENT - A/C; BG VENT RATE 12 set
[2019-11-21] MEDS: ENOXAPARIN 40MG/0.4ML SYR SUBCUT SCH (16:09)
[2019-11-21] MEDS: MONTELUKAST SODIUM 10MG TABLET PO SCH (16:09)
[2019-11-22] VITALS (22 sets, daily range): BP systolic 99–133; BP diastolic 51–82
[2019-11-22] MEDS: IPRATROPIUM/ALBUTEROL 0.5-3(2.5)MG/3ML NEB HHN SCH ×6 (00:23→20:21)
[2019-11-22] MEDS: INSULIN LISPRO 100 UNITS/ML SUBCUT SCH ×3 (04:44→18:32)
[2019-11-22 06:07] LABS: CHLORIDE 98 mEq/L (98-107)
[2019-11-22 06:39] LABS: BASOPHILS % 0.4 % (0.0-2.0); EOSINOPHILS % 0.2 % (0.0-5.0); HEMATOCRIT. 27.2 % (42.0-52.0); HEMOGLOBIN. 9.1 g/dL (14.0-18.0); LYMPHOCYTES % 9.3 % (20.0-50.0); MEAN CORPUSCULAR HEMOGLOBIN 31.9 pg (28.0-32.0); MEAN CORPUSCULAR VOLUME 95.1 fL (80.0-94.0); MEAN PLATELET VOLUME 7.4 fl (7.4-10.4); MONOCYTES % 2.4 % (2.0-8.0); NEUTROPHILS % 87.7 % (40.0-76.0); PLATELET 378 x1000/uL (130-400); RED BLOOD CELL COUNT 2.86 mill/uL (4.7-6.1); RED CELL DISTRIBUTION WIDTH 15.1 % (11.6-14.6)
[2019-11-22 08:27] LABS: BG BASE EXCESS 3.2 mmol/L (-2.0-2.0); BG CARBOXYHEMOGLOBIN 0.3 % (0.5-1.5); BG DEOXYHEMOGLOBIN 2.8 % (0.0-5.0); BG HCO3 ACT 26.7 mmol/L (22.0-26.0); BG METHEMOGLOBIN 0.1 % (0.0-1.5); BG OXYGEN SATURATION 97.2 % (92.0-98.5); BG OXYHEMOGLOBIN 96.8 % (94.0-97.0); BG PCO2 36.4 mmHg (35.0-45.0); BG PH 7.484 (7.350-7.450); BG SAMPLE SITE RIGHT RADIAL; BG TIDAL VOLUME(mL) 400 mL; BG TOTAL HEMOGLOBIN 9.5 g/dL (12.0-18.0); BG VENT MODE 12; BG VENT RATE 550 set
[2019-11-22] MEDS: FAMOTIDINE 20MG/2ML VIAL IV SCH ×2 (09:18→21:52)
[2019-11-22] MEDS: DOCUSATE SODIUM SUGAR FREE 100MG/10ML UDC NG SCH (09:19)
[2019-11-22] MEDS: LAMOTRIGINE 100MG TABLET PO SCH ×2 (09:19→21:52)
[2019-11-22] MEDS: INSULIN GLARGINE UD 100 UNITS/ML SYR SUBCUT SCH ×3 (10:00→22:00)
[2019-11-22] MEDS: DEXTROSE 50% WATER 50ML SYRINGE IV PRN ×2 (10:12→19:30)
[2019-11-22] MEDS: BLOOD SUGAR DIAGNOSTIC STRIP TEST SCH ×3 (12:00→18:30)
[2019-11-22] MEDS: SODIUM CHLORIDE 0.9% INJ 3ML FLUSH IVF SCH ×2 (14:00→21:53)
[2019-11-22] MEDS: MONTELUKAST SODIUM 10MG TABLET PO SCH (16:07)
[2019-11-22] MEDS: ENOXAPARIN 40MG/0.4ML SYR SUBCUT SCH (16:07)
[2019-11-22] MEDS: DEXT 5%/0.45% NACL 1000ML 1,000 ML IV SCH (19:28)
[2019-11-23] VITALS (25 sets, daily range): BP systolic 85–122; BP diastolic 40–77
[2019-11-23] MEDS: IPRATROPIUM/ALBUTEROL 0.5-3(2.5)MG/3ML NEB HHN SCH ×6 (00:46→19:56)
[2019-11-23] MEDS: BLOOD SUGAR DIAGNOSTIC STRIP TEST SCH ×4 (00:53→17:53)
[2019-11-23] MEDS: ACETAMINOPHEN 325MG TABLET PO PRN ×2 (00:55→09:57)
[2019-11-23 05:42] LABS: BASOPHILS % 0.7 % (0.0-2.0); EOSINOPHILS % 0.3 % (0.0-5.0); HEMATOCRIT. 23.7 % (42.0-52.0); HEMOGLOBIN. 8.4 g/dL (14.0-18.0); LYMPHOCYTES % 15.1 % (20.0-50.0); MEAN CORPUSCULAR HEMOGLOBIN 33.7 pg (28.0-32.0); MEAN CORPUSCULAR VOLUME 95.1 fL (80.0-94.0); MEAN PLATELET VOLUME 6.9 fl (7.4-10.4); MONOCYTES % 3.6 % (2.0-8.0); NEUTROPHILS % 80.3 % (40.0-76.0); PLATELET 332 x1000/uL (130-400); RED BLOOD CELL COUNT 2.49 mill/uL (4.7-6.1); RED CELL DISTRIBUTION WIDTH 15.3 % (11.6-14.6)
[2019-11-23 05:53] LABS: CHLORIDE 99 mEq/L (98-107)
[2019-11-23] MEDS: SODIUM CHLORIDE 0.9% INJ 3ML FLUSH IVF SCH ×3 (06:00→22:10)
[2019-11-23] MEDS: INSULIN LISPRO 100 UNITS/ML SUBCUT SCH ×4 (06:00→17:53)
[2019-11-23 09:09] LABS: BG BASE EXCESS 6.6 mmol/L (-2.0-2.0); BG CARBOXYHEMOGLOBIN 0.3 % (0.5-1.5); BG DEOXYHEMOGLOBIN 0.5 % (0.0-5.0); BG FRACTION INSPIRED OXYGEN 100; BG HCO3 ACT 30.1 mmol/L (22.0-26.0); BG METHEMOGLOBIN 0.2 % (0.0-1.5); BG OXYGEN SATURATION 99.5 % (92.0-98.5); BG PCO2 38.8 mmHg (35.0-45.0); BG PH 7.508 (7.350-7.450); BG PO2 391.3 mmHg (75.0-100.0); BG PRESSURE SUPPORT 12; BG SAMPLE SITE RIGHT RADIAL; BG TIDAL VOLUME(mL) 550 mL; BG TOTAL HEMOGLOBIN 9.8 g/dL (12.0-18.0); BG VENT MODE VENT - SIMV; BG VENT RATE 10 set
[2019-11-23] MEDS: DOCUSATE SODIUM SUGAR FREE 100MG/10ML UDC NG SCH (09:13)
[2019-11-23] MEDS: LAMOTRIGINE 100MG TABLET PO SCH ×2 (09:13→22:11)
[2019-11-23] MEDS: FAMOTIDINE 20MG/2ML VIAL IV SCH ×2 (09:13→22:10)
[2019-11-23] MEDS ORDERED: POTASSIUM CHLORIDE INJ 40 MEQ in DEXT 5% WATER 250 ML IV NR (10:00)
[2019-11-23] MEDS ORDERED: REGADENOSON 0.4 MG/5 ML IV ONE (10:16)
[2019-11-23] MEDS: DEXT 5%/0.45% NACL 1000ML 1,000 ML IV SCH (15:00)
[2019-11-23] MEDS: MORPHINE SULFATE 2 MG/ML CPJ (NOT FOR IM USE) IV PRN (16:14)
[2019-11-23] MEDS: ENOXAPARIN 40MG/0.4ML SYR SUBCUT SCH (16:20)
[2019-11-23] MEDS: MONTELUKAST SODIUM 10MG TABLET PO SCH (16:44)
[2019-11-24] VITALS (24 sets, daily range): BP systolic 89–132; BP diastolic 47–78
[2019-11-24] MEDS: BLOOD SUGAR DIAGNOSTIC STRIP TEST SCH ×5 (00:37→23:41)
[2019-11-24] MEDS: IPRATROPIUM/ALBUTEROL 0.5-3(2.5)MG/3ML NEB HHN SCH ×6 (01:05→20:57)
[2019-11-24 05:39] LABS: BASOPHILS % 0.4 % (0.0-2.0); EOSINOPHILS % 0.8 % (0.0-5.0); HEMATOCRIT. 25.5 % (42.0-52.0); HEMOGLOBIN. 8.7 g/dL (14.0-18.0); LYMPHOCYTES % 13.2 % (20.0-50.0); MEAN CORPUSCULAR HEMOGLOBIN 32.4 pg (28.0-32.0); MEAN CORPUSCULAR VOLUME 95.3 fL (80.0-94.0); MEAN PLATELET VOLUME 6.6 fl (7.4-10.4); MONOCYTES % 4.5 % (2.0-8.0); NEUTROPHILS % 81.1 % (40.0-76.0); PLATELET 354 x1000/uL (130-400); RED BLOOD CELL COUNT 2.67 mill/uL (4.7-6.1); RED CELL DISTRIBUTION WIDTH 15.5 % (11.6-14.6)
[2019-11-24 05:47] LABS: CHLORIDE 98 mEq/L (98-107)
[2019-11-24 05:58] LABS: PROTHROMBIN TIME 10.9 sec (9.6-11.0)
[2019-11-24] MEDS: INSULIN LISPRO 100 UNITS/ML SUBCUT SCH ×5 (06:00→23:41)
[2019-11-24 06:14] LABS: HEPATITIS B SURFACE ANTIGEN NEGATIVE
[2019-11-24 06:44] LABS: HEPATITIS A AB IGM NEGATIVE (NEGATIVE)
[2019-11-24] MEDS: SODIUM CHLORIDE 0.9% INJ 3ML FLUSH IVF SCH ×3 (06:50→22:07)
[2019-11-24] MEDS: DOCUSATE SODIUM SUGAR FREE 100MG/10ML UDC NG SCH (09:00)
[2019-11-24] MEDS: LAMOTRIGINE 100MG TABLET PO SCH ×2 (09:24→20:33)
[2019-11-24] MEDS: FAMOTIDINE 20MG/2ML VIAL IV SCH ×2 (09:25→20:33)
[2019-11-24] MEDS ORDERED: POTASSIUM CHLORIDE INJ 40 MEQ in DEXT 5% WATER 250 ML IV NR (11:00)
[2019-11-24] MEDS: DEXT 5%/0.45% NACL 1000ML 1,000 ML IV SCH (11:46)
[2019-11-24] MEDS: ONDANSETRON HCL 4MG/2ML INJ IV PRN (12:48)
[2019-11-24] MEDS: MONTELUKAST SODIUM 10MG TABLET PO SCH (16:46)
[2019-11-24] MEDS: ENOXAPARIN 40MG/0.4ML SYR SUBCUT SCH (16:46)
[2019-11-24] MEDS: MORPHINE SULFATE 2 MG/ML CPJ (NOT FOR IM USE) IV PRN (18:32)
[2019-11-25] VITALS (16 sets, daily range): BP systolic 93–119; BP diastolic 55–88
[2019-11-25] MEDS: IPRATROPIUM/ALBUTEROL 0.5-3(2.5)MG/3ML NEB HHN SCH ×6 (00:41→21:02)
[2019-11-25] MEDS: MORPHINE SULFATE 2 MG/ML CPJ (NOT FOR IM USE) IV PRN ×3 (01:14→23:47)
[2019-11-25] MEDS: BLOOD SUGAR DIAGNOSTIC STRIP TEST SCH ×3 (05:21→18:00)
[2019-11-25] MEDS: SODIUM CHLORIDE 0.9% INJ 3ML FLUSH IVF SCH ×3 (05:21→21:35)
[2019-11-25] MEDS: INSULIN LISPRO 100 UNITS/ML SUBCUT SCH ×3 (05:25→18:00)
[2019-11-25 06:15] LABS: BASOPHILS % 0.7 % (0.0-2.0); HEMATOCRIT. 23.7 % (42.0-52.0); LYMPHOCYTES % 18.1 % (20.0-50.0); MEAN CORPUSCULAR HEMOGLOBIN 32.3 pg (28.0-32.0); MEAN CORPUSCULAR VOLUME 95.7 fL (80.0-94.0); MEAN PLATELET VOLUME 7.1 fl (7.4-10.4); NEUTROPHILS % 75.2 % (40.0-76.0); PLATELET 309 x1000/uL (130-400); RED BLOOD CELL COUNT 2.47 mill/uL (4.7-6.1); RED CELL DISTRIBUTION WIDTH 15.4 % (11.6-14.6)
[2019-11-25 06:33] LABS: CHLORIDE 98 mEq/L (98-107)
[2019-11-25] MEDS: DOCUSATE SODIUM SUGAR FREE 100MG/10ML UDC NG SCH (08:35)
[2019-11-25] MEDS: DEXT 5%/0.45% NACL 1000ML 1,000 ML IV SCH ×2 (08:40→21:58)
[2019-11-25] MEDS: LAMOTRIGINE 100MG TABLET PO SCH ×2 (08:41→21:32)
[2019-11-25] MEDS: FAMOTIDINE 20MG/2ML VIAL IV SCH (08:41)
[2019-11-25] MEDS: PANTOPRAZOLE SODIUM 40 MG/VIAL IV SCH ×2 (13:10→21:32)
[2019-11-25] MEDS: MONTELUKAST SODIUM 10MG TABLET PO SCH (17:00)
[2019-11-25] MEDS: METOCLOPRAMIDE HCL 10MG/2ML VIAL IV SCH ×2 (18:00→23:45)
[2019-11-26] VITALS (11 sets, daily range): BP systolic 90–140; BP diastolic 54–84
[2019-11-26] MEDS: IPRATROPIUM/ALBUTEROL 0.5-3(2.5)MG/3ML NEB HHN SCH ×6 (00:41→20:45)
[2019-11-26] MEDS: ONDANSETRON HCL 4MG/2ML INJ IV PRN (05:47)
[2019-11-26] MEDS: MORPHINE SULFATE 2 MG/ML CPJ (NOT FOR IM USE) IV PRN ×2 (05:48→18:21)
[2019-11-26] MEDS: INSULIN LISPRO 100 UNITS/ML SUBCUT SCH ×5 (05:49→23:23)
[2019-11-26] MEDS: METOCLOPRAMIDE HCL 10MG/2ML VIAL IV SCH ×4 (06:00→23:11)
[2019-11-26] MEDS: SODIUM CHLORIDE 0.9% INJ 3ML FLUSH IVF SCH ×3 (06:00→21:13)
[2019-11-26] MEDS: BLOOD SUGAR DIAGNOSTIC STRIP TEST SCH ×5 (06:00→23:11)
[2019-11-26 07:05] LABS: BASOPHILS % 0.8 % (0.0-2.0); EOSINOPHILS % 0.8 % (0.0-5.0); HEMATOCRIT. 23.7 % (42.0-52.0); MEAN CORPUSCULAR HEMOGLOBIN 32.2 pg (28.0-32.0); MEAN PLATELET VOLUME 6.8 fl (7.4-10.4); MONOCYTES % 6.8 % (2.0-8.0); NEUTROPHILS % 74.6 % (40.0-76.0); PLATELET 308 x1000/uL (130-400); RED BLOOD CELL COUNT 2.49 mill/uL (4.7-6.1); RED CELL DISTRIBUTION WIDTH 15.5 % (11.6-14.6)
[2019-11-26 07:12] LABS: CHLORIDE 99 mEq/L (98-107)
[2019-11-26] MEDS: DOCUSATE SODIUM SUGAR FREE 100MG/10ML UDC NG SCH ×2 (09:00→09:38)
[2019-11-26] MEDS: PANTOPRAZOLE SODIUM 40 MG/VIAL IV SCH ×2 (09:38→21:11)
[2019-11-26] MEDS: LAMOTRIGINE 100MG TABLET PO SCH ×3 (09:38→21:00)
[2019-11-26] MEDS ORDERED: POTASSIUM CHLORIDE INJ 40 MEQ in DEXT 5% WATER 250 ML IV SCH (10:00)
[2019-11-26] MEDS: MONTELUKAST SODIUM 10MG TABLET PO SCH (17:00)
[2019-11-26] MEDS: DEXT 5%/0.45% NACL 1000ML 1,000 ML IV SCH (23:11)
[2019-11-27] VITALS (12 sets, daily range): BP systolic 98–136; BP diastolic 36–80
[2019-11-27] MEDS: IPRATROPIUM/ALBUTEROL 0.5-3(2.5)MG/3ML NEB HHN SCH ×6 (00:12→20:26)
[2019-11-27] MEDS: METOCLOPRAMIDE HCL 10MG/2ML VIAL IV SCH ×4 (05:04→23:16)
[2019-11-27] MEDS: SODIUM CHLORIDE 0.9% INJ 3ML FLUSH IVF SCH ×3 (05:05→21:12)
[2019-11-27] MEDS: BLOOD SUGAR DIAGNOSTIC STRIP TEST SCH ×4 (05:06→23:20)
[2019-11-27] MEDS: INSULIN LISPRO 100 UNITS/ML SUBCUT SCH ×4 (05:23→23:20)
[2019-11-27] MEDS ORDERED: DIATR MEGLU/DIATRIZOATE SOLN 30ML PO SCH (06:00)
[2019-11-27 06:23] LABS: BASOPHILS % 1.2 % (0.0-2.0); HEMATOCRIT. 24.9 % (42.0-52.0); HEMOGLOBIN. 8.3 g/dL (14.0-18.0); LYMPHOCYTES % 17.4 % (20.0-50.0); MEAN CORPUSCULAR HEMOGLOBIN 31.5 pg (28.0-32.0); MEAN CORPUSCULAR VOLUME 94.9 fL (80.0-94.0); MEAN PLATELET VOLUME 6.9 fl (7.4-10.4); MONOCYTES % 8.1 % (2.0-8.0); NEUTROPHILS % 71.3 % (40.0-76.0); PLATELET 332 x1000/uL (130-400); RED BLOOD CELL COUNT 2.63 mill/uL (4.7-6.1); RED CELL DISTRIBUTION WIDTH 16.1 % (11.6-14.6)
[2019-11-27 06:32] LABS: CHLORIDE 100 mEq/L (98-107)
[2019-11-27] MEDS: DOCUSATE SODIUM SUGAR FREE 100MG/10ML UDC NG SCH (09:00)
[2019-11-27] MEDS: LAMOTRIGINE 100MG TABLET PO SCH ×2 (09:00→21:00)
[2019-11-27] MEDS: PANTOPRAZOLE SODIUM 40 MG/VIAL IV SCH ×2 (10:06→21:11)
[2019-11-27] MEDS ORDERED: LORAZEPAM 2MG/ML CPJ IV NR (16:45)
[2019-11-27] MEDS ORDERED: DIATR MEGLU/DIATRIZOATE SOLN 30ML PO NR (16:45)
[2019-11-27] MEDS: MONTELUKAST SODIUM 10MG TABLET PO SCH (17:00)
[2019-11-27] MEDS ORDERED: POTASSIUM CHLORIDE INJ 40 MEQ in DEXT 5% WATER 250 ML IV SCH (18:00)
[2019-11-27] MEDS: DEXT 5%/0.45% NACL 1000ML 1,000 ML IV SCH (18:19)
[2019-11-27] MEDS ORDERED: LORAZEPAM 2MG/ML CPJ IV ONE (19:20)
[2019-11-28] VITALS (13 sets, daily range): BP systolic 92–131; BP diastolic 47–75
[2019-11-28] MEDS: IPRATROPIUM/ALBUTEROL 0.5-3(2.5)MG/3ML NEB HHN SCH ×6 (00:22→21:01)
[2019-11-28] MEDS ORDERED: LORAZEPAM 2MG/ML CPJ IV SCH (01:45)
[2019-11-28] MEDS: SODIUM CHLORIDE 0.9% INJ 3ML FLUSH IVF SCH ×3 (05:42→22:00)
[2019-11-28] MEDS: BLOOD SUGAR DIAGNOSTIC STRIP TEST SCH ×3 (05:42→17:25)
[2019-11-28] MEDS: METOCLOPRAMIDE HCL 10MG/2ML VIAL IV SCH ×3 (05:42→21:59)
[2019-11-28] MEDS: INSULIN LISPRO 100 UNITS/ML SUBCUT SCH ×3 (05:52→17:25)
[2019-11-28 07:46] LABS: BASOPHILS % 0.8 % (0.0-2.0); HEMATOCRIT. 25.4 % (42.0-52.0); HEMOGLOBIN. 8.6 g/dL (14.0-18.0); LYMPHOCYTES % 29.4 % (20.0-50.0); MEAN CORPUSCULAR HEMOGLOBIN 32.2 pg (28.0-32.0); MEAN CORPUSCULAR VOLUME 95.3 fL (80.0-94.0); MEAN PLATELET VOLUME 6.9 fl (7.4-10.4); MONOCYTES % 11.6 % (2.0-8.0); NEUTROPHILS % 56.2 % (40.0-76.0); PLATELET 365 x1000/uL (130-400); RED BLOOD CELL COUNT 2.67 mill/uL (4.7-6.1); RED CELL DISTRIBUTION WIDTH 16.2 % (11.6-14.6)
[2019-11-28 08:38] LABS: CHLORIDE 102 mEq/L (98-107)
[2019-11-28] MEDS: PANTOPRAZOLE SODIUM 40 MG/VIAL IV SCH ×2 (08:39→21:59)
[2019-11-28] MEDS: DOCUSATE SODIUM SUGAR FREE 100MG/10ML UDC NG SCH (08:40)
[2019-11-28] MEDS: LAMOTRIGINE 100MG TABLET PO SCH ×2 (08:40→22:00)
[2019-11-28] MEDS ORDERED: POTASSIUM CHLORIDE INJ 40 MEQ in DEXT 5% WATER 250 ML IV SCH (11:00)
[2019-11-28] MEDS ORDERED: MIDAZOLAM HCL 5 MG/5 ML VIAL ONE (15:04)
[2019-11-28] MEDS ORDERED: FENTANYL CITRATE/PF 50MCG/ML 2ML VIAL ONE (15:05)
[2019-11-28] MEDS ORDERED: CEFAZOLIN 1000MG PREMIX 50 ML IV ONE (16:42)
[2019-11-28] MEDS ORDERED: MIDAZOLAM HCL 5 MG/5 ML VIAL IV PRN (16:48)
[2019-11-28] MEDS ORDERED: CEFAZOLIN 500 MG in DEXTROSE 5% WATER 50 ML IV ONE (16:50)
[2019-11-28] MEDS ORDERED: CEFAZOLIN SODIUM 1000MG/VIAL IV ONE (16:50)
[2019-11-28] MEDS: MONTELUKAST SODIUM 10MG TABLET PO SCH (17:24)
[2019-11-28] MEDS ORDERED: SORBITOL 70% SOLN 30ML PO NR (17:30)
[2019-11-28] MEDS: DEXT 5%/0.45% NACL 1000ML 1,000 ML IV SCH (21:57)
[2019-11-28] MEDS: MORPHINE SULFATE 2 MG/ML CPJ (NOT FOR IM USE) IV PRN (22:01)
[2019-11-29] VITALS (20 sets, daily range): BP systolic 93–145; BP diastolic 47–119
[2019-11-29] MEDS: IPRATROPIUM/ALBUTEROL 0.5-3(2.5)MG/3ML NEB HHN SCH ×7 (00:13→23:59)
[2019-11-29] MEDS: METOCLOPRAMIDE HCL 10MG/2ML VIAL IV SCH ×6 (00:38→21:00)
[2019-11-29] MEDS: INSULIN LISPRO 100 UNITS/ML SUBCUT SCH ×4 (00:40→18:38)
[2019-11-29] MEDS: BLOOD SUGAR DIAGNOSTIC STRIP TEST SCH ×4 (00:40→18:00)
[2019-11-29] MEDS: SODIUM CHLORIDE 0.9% INJ 3ML FLUSH IVF SCH ×2 (06:08→16:13)
[2019-11-29 06:48] LABS: BASOPHILS % 0.5 % (0.0-2.0); EOSINOPHILS % 1.4 % (0.0-5.0); HEMATOCRIT. 26.4 % (42.0-52.0); HEMOGLOBIN. 8.8 g/dL (14.0-18.0); LYMPHOCYTES % 35.7 % (20.0-50.0); MEAN CORPUSCULAR HEMOGLOBIN 31.6 pg (28.0-32.0); MEAN CORPUSCULAR VOLUME 94.9 fL (80.0-94.0); MEAN PLATELET VOLUME 6.7 fl (7.4-10.4); MONOCYTES % 13.4 % (2.0-8.0); PLATELET 433 x1000/uL (130-400); RED BLOOD CELL COUNT 2.79 mill/uL (4.7-6.1); RED CELL DISTRIBUTION WIDTH 16.3 % (11.6-14.6)
[2019-11-29 06:52] LABS: CHLORIDE 103 mEq/L (98-107)
[2019-11-29] MEDS: PANTOPRAZOLE SODIUM 40 MG/VIAL IV SCH ×2 (09:26→21:00)
[2019-11-29] MEDS: LAMOTRIGINE 100MG TABLET PO SCH ×2 (09:26→21:00)
[2019-11-29] MEDS: DOCUSATE SODIUM SUGAR FREE 100MG/10ML UDC NG SCH (09:26)
[2019-11-29] MEDS ORDERED: POTASSIUM CHLORIDE INJ 40 MEQ in DEXT 5% WATER 250 ML IV NR (09:30)
[2019-11-29] MEDS: DEXT 5%/0.45% NACL 1000ML 1,000 ML IV SCH (10:48)
[2019-11-29] MEDS: MONTELUKAST SODIUM 10MG TABLET PO SCH (16:10)
[2019-11-29] MEDS: MORPHINE SULFATE 2 MG/ML CPJ (NOT FOR IM USE) IV PRN (16:12)
[2019-11-30] VITALS (22 sets, daily range): BP systolic 78–134; BP diastolic 25–110
[2019-11-30] MEDS: BLOOD SUGAR DIAGNOSTIC STRIP TEST SCH ×4 (00:31→17:25)
[2019-11-30] MEDS: MORPHINE SULFATE 2 MG/ML CPJ (NOT FOR IM USE) IV PRN ×5 (00:31→21:34)
[2019-11-30] MEDS: METOCLOPRAMIDE HCL 10MG/2ML VIAL IV SCH ×6 (00:31→21:33)
[2019-11-30] MEDS: INSULIN LISPRO 100 UNITS/ML SUBCUT SCH ×4 (00:31→18:47)
[2019-11-30] MEDS: IPRATROPIUM/ALBUTEROL 0.5-3(2.5)MG/3ML NEB HHN SCH ×3 (03:58→12:20)
[2019-11-30] MEDS: DEXT 5%/0.45% NACL 1000ML 1,000 ML IV SCH (06:12)
[2019-11-30 07:02] LABS: HEMATOCRIT. 25.3 % (42.0-52.0); HEMOGLOBIN. 8.7 g/dL (14.0-18.0); MEAN CORPUSCULAR HEMOGLOBIN 32.2 pg (28.0-32.0); MEAN CORPUSCULAR VOLUME 94.1 fL (80.0-94.0); MEAN PLATELET VOLUME 6.9 fl (7.4-10.4); PLATELET 461 x1000/uL (130-400); RED BLOOD CELL COUNT 2.69 mill/uL (4.7-6.1); RED CELL DISTRIBUTION WIDTH 16.4 % (11.6-14.6)
[2019-11-30 07:52] LABS: CHLORIDE 101 mEq/L (98-107)
[2019-11-30] MEDS: PANTOPRAZOLE SODIUM 40 MG/VIAL IV SCH ×2 (09:21→21:33)
[2019-11-30] MEDS: LAMOTRIGINE 100MG TABLET PO SCH ×2 (09:22→21:33)
[2019-11-30] MEDS: DOCUSATE SODIUM SUGAR FREE 100MG/10ML UDC NG SCH (09:22)
[2019-11-30 10:21] LABS: PLATELET ESTIMATE INCREASED
[2019-11-30] MEDS: MONTELUKAST SODIUM 10MG TABLET PO SCH (17:25)
[2019-12-01] VITALS (12 sets, daily range): BP systolic 121–170; BP diastolic 54–99
[2019-12-01] MEDS: METOCLOPRAMIDE HCL 10MG/2ML VIAL IV SCH ×6 (00:11→21:25)
[2019-12-01] MEDS: BLOOD SUGAR DIAGNOSTIC STRIP TEST SCH ×5 (00:14→18:55)
[2019-12-01] MEDS: INSULIN LISPRO 100 UNITS/ML SUBCUT SCH ×4 (00:14→18:56)
[2019-12-01] MEDS: MORPHINE SULFATE 2 MG/ML CPJ (NOT FOR IM USE) IV PRN ×4 (01:38→15:23)
[2019-12-01] MEDS: DEXT 5%/0.45% NACL 1000ML 1,000 ML IV SCH (05:03)
[2019-12-01] MEDS: DOCUSATE SODIUM SUGAR FREE 100MG/10ML UDC NG SCH (09:19)
[2019-12-01] MEDS: PANTOPRAZOLE SODIUM 40 MG/VIAL IV SCH ×2 (09:19→21:26)
[2019-12-01] MEDS: LAMOTRIGINE 100MG TABLET PO SCH ×2 (09:19→21:26)
[2019-12-01] MEDS: IPRATROPIUM/ALBUTEROL 0.5-3(2.5)MG/3ML NEB HHN PRN ×2 (12:22→20:00)
[2019-12-01 13:35] LABS: HEMATOCRIT. 25.5 % (42.0-52.0); HEMOGLOBIN. 8.4 g/dL (14.0-18.0); MEAN CORPUSCULAR HEMOGLOBIN 31.3 pg (28.0-32.0); MEAN CORPUSCULAR VOLUME 94.6 fL (80.0-94.0); MEAN PLATELET VOLUME 6.8 fl (7.4-10.4); PLATELET 523 x1000/uL (130-400); RED BLOOD CELL COUNT 2.69 mill/uL (4.7-6.1); RED CELL DISTRIBUTION WIDTH 16.5 % (11.6-14.6)
[2019-12-01 13:39] LABS: CHLORIDE 101 mEq/L (98-107)
[2019-12-01 13:57] LABS: PLATELET ESTIMATE INCREASED
[2019-12-02] VITALS (18 sets, daily range): BP systolic 100–157; BP diastolic 55–74
[2019-12-02] MEDS: METOCLOPRAMIDE HCL 10MG/2ML VIAL IV SCH ×5 (01:15→18:35)
[2019-12-02] MEDS: INSULIN LISPRO 100 UNITS/ML SUBCUT SCH ×4 (01:16→19:01)
[2019-12-02] MEDS: DEXT 5%/0.45% NACL 1000ML 1,000 ML IV SCH ×2 (01:17→12:07)
[2019-12-02] MEDS: IPRATROPIUM/ALBUTEROL 0.5-3(2.5)MG/3ML NEB HHN PRN ×3 (04:00→16:47)
[2019-12-02] MEDS: MORPHINE SULFATE 2 MG/ML CPJ (NOT FOR IM USE) IV PRN (06:26)
[2019-12-02] MEDS: BLOOD SUGAR DIAGNOSTIC STRIP TEST SCH ×4 (06:27→18:00)
[2019-12-02] MEDS: PANTOPRAZOLE SODIUM 40 MG/VIAL IV SCH (08:57)
[2019-12-02] MEDS: LAMOTRIGINE 100MG TABLET PO SCH (08:57)
[2019-12-02] MEDS: DOCUSATE SODIUM SUGAR FREE 100MG/10ML UDC NG SCH (08:58)
[2019-12-02] MEDS ORDERED: POTASSIUM CHLORIDE 20MEQ TABLET SR PO SCH (13:45)
== END 2019-12-02 22:00 | DRG 4 ==
LOC: ER 01:33 → CANRESERV 19:17 → ENRESERV 19:17 → 5EST 11-02 04:00 → ENRESERV 11-02 07:34 → CVICU 11-02 12:25 → 5EST 11-25 09:15
PROVIDERS: ADMIT Internal Medicine; ATTEND Internal Medicine
PROC: 5A09357 Assistance with Respiratory Ventilation, Less than 24 Consecutive Hours, Continuous Positive Airway Pressure (ICD-10-PCS; 2019-11-01)
PROC: 5A1955Z Respiratory Ventilation, Greater than 96 Consecutive Hours (ICD-10-PCS; principal; 2019-11-02)
PROC: 02HV33Z Insertion of Infusion Device into Superior Vena Cava, Percutaneous Approach (ICD-10-PCS; 2019-11-04)
PROC: B548ZZA Ultrasonography of Superior Vena Cava, Guidance (ICD-10-PCS; 2019-11-04)
PROC: 0B113F4 Bypass Trachea to Cutaneous with Tracheostomy Device, Percutaneous Approach (ICD-10-PCS; 2019-11-20)
PROC: 0DH68UZ Insertion of Feeding Device into Stomach, Via Natural or Artificial Opening Endoscopic (ICD-10-PCS; 2019-11-28)
PROC: 0DB68ZX Excision of Stomach, Via Natural or Artificial Opening Endoscopic, Diagnostic (ICD-10-PCS; 2019-11-28)
DX: A41.9 Sepsis, unspecified organism (principal); J69.0 Pneumonitis due to inhalation of food and vomit; J96.02 Acute respiratory failure with hypercapnia; E43 Unspecified severe protein-calorie malnutrition; G93.41 Metabolic encephalopathy; J96.01 Acute respiratory failure with hypoxia; J15.1 Pneumonia due to Pseudomonas; E87.0 Hyperosmolality and hypernatremia; K56.7 Ileus, unspecified; Z99.11 Dependence on respirator [ventilator] status; E78.5 Hyperlipidemia, unspecified; E78.1 Pure hyperglyceridemia; D64.9 Anemia, unspecified; E87.6 Hypokalemia; E87.5 Hyperkalemia; F14.10 Cocaine abuse, uncomplicated; F17.210 Nicotine dependence, cigarettes, uncomplicated; Z66 Do not resuscitate; K59.00 Constipation, unspecified; D75.89 Other specified diseases of blood and blood-forming organs; K25.9 Gastric ulcer, unspecified as acute or chronic, without hemorrhage or perforation; K29.70 Gastritis, unspecified, without bleeding; R13.10 Dysphagia, unspecified; E83.52 Hypercalcemia; G40.909 Epilepsy, unspecified, not intractable, without status epilepticus; J43.2 Centrilobular emphysema; E11.65 Type 2 diabetes mellitus with hyperglycemia; T38.0X5A Adverse effect of glucocorticoids and synthetic analogues, initial encounter; R74.0 Nonspecific elevation of levels of transaminase and lactic acid dehydrogenase [LDH]; R91.1 Solitary pulmonary nodule; Z78.1 Physical restraint status; Z79.4 Long term (current) use of insulin; Z79.51 Long term (current) use of inhaled steroids; Z88.2 Allergy status to sulfonamides; Y92.89 Other specified places as the place of occurrence of the external cause; Z71.6 Tobacco abuse counseling; Z68.27 Body mass index [BMI] 27.0-27.9, adult
CPT/HCPCS: 31500; 36415; 36600; 70551; 71045; 71250; 74018; 76700; 76937; 80048; 80053; 80061; 80076; 80305; 81003; 82140; 82248; 82375; 82550; 82553; 82652; 82805; 82962; 83036; 83605; 83735; 83880; 84100; 84132; 84145; 84439; 84443; 84478; 84484; 85025; 85027; 85379; 86705; 86709; 86803; 87070; 87077; 87186; 87340; 88305; 88313; 93005; 93306; 93970; 94003; 94640; 94660; 97110; 97162; 99152; 99291; C1725; C9113; J0360; J0690; J1200; J1650; J1815; J1940; J2060; J2185; J2250; J2270; J2405; J2543; J2704; J2765; J2785; J2920; J2930; J3010; J3105; J3475; J3480; J3490; J7030; J7050; J7060; J7070; J7608; Q9963; G0500